=== PATIENT | male | born 1960 | race Caucasian/White ===

== ENCOUNTER 2023-03-19 11:49 | Outpatient (REF) | payer MEDICAID, SELFPAY ==
[2023-03-19 14:29] LABS: MANUAL DIFF FLAG NO
[2023-03-19 14:34] LABS: Basophils Percent Auto 0.5 % (0-2); Eosinophils Absolute Auto 0.2 X10*3/uL (0.0-0.4); Eosinophils Percent Auto 5.6 % (0-4); Hematocrit 35.3 % (42.0-52.0); Hemoglobin 11.6 g/dl (14.0-18.0); Imm Gran Abs Auto 0.01 X10*3/uL (0.00-0.03); Imm Gran Pct Auto 0.2 % (0.0-0.4); Immature Retic Fraction 8.4 % (2.3-13.4); Lymphocytes Absolute Auto 0.8 X10*3/uL (1.2-4.9); Lymphocytes Percent Auto 18.7 % (20-40); Mean Corpuscular HGB Conc 32.9 g/dl (31.0-36.0); Mean Corpuscular Hemoglobin 30.9 pg (27.0-33.0); Mean Corpuscular Volume 93.9 fL (80.0-98.0); Monocytes Absolute Auto 0.6 X10*3/uL (0.1-1.2); Monocytes Percent Auto 14.6 % (2-11); Neutrophils Absolute Auto 2.5 x10*3/uL (2.0-8.3); Neutrophils Percent Auto 60.4 % (45-73); Platelet Count 187 X10*3/uL (160-400); Red Blood Count 3.76 X10*6/uL (4.60-5.80); Red Cell Distribution Width 13.4 % (11.0-16.0); Retic HGB Equivalent 34.3 pg (30.0-35.0); Reticulocytes Absolute 0.037 X10*6/uL (0.026-0.095); White Blood Count 4.1 X10*3/uL (4.8-10.8)
[2023-03-19 15:18] LABS: Folate 14.7 ng/mL (> or = 4.0); Vitamin B12 545 pg/mL (200-900)
[2023-03-19 15:48] LABS: Iron 74 mcg/dL (45-160); Percent Iron Saturation 30 % (15-50); Total Iron Binding Capacity 243 mcg/dL (228-428); Unsaturated Iron Binding 169 ug/dL
[2023-03-19 15:52] LABS: Ferritin 202 ng/mL (20-250)
== END 2023-03-19 11:50 | disposition home or self-care (01) ==
LOC: HO.CHCLDS 11:49
PROVIDERS: Visit Provider Internal Medicine
DX: D64.9 Anemia, unspecified (principal)
CPT/HCPCS: 36415; 82607; 82728; 82746; 83540; 85025; 85045

== ENCOUNTER 2025-05-24 08:41 | Outpatient (REF) | payer MEDICAID, SELFPAY ==
[2025-05-24 14:31] LABS: MANUAL DIFF FLAG NO
[2025-05-24 14:35] LABS: Hematocrit 42.3 % (42.0-52.0); Hemoglobin 13.7 g/dl (14.0-18.0); Imm Gran Abs Auto 0.03 X10*3/uL (0.00-0.03); Imm Gran Pct Auto 0.5 % (0.0-0.4); Lymphocytes Absolute Auto 0.4 X10*3/uL (1.2-4.9); Mean Corpuscular HGB Conc 32.4 g/dl (31.0-36.0); Mean Corpuscular Hemoglobin 32.0 pg (27.0-33.0); Mean Corpuscular Volume 98.8 fL (80.0-98.0); NRBC Abs Auto 0.000 X10*3/uL (0.0-0.012); NRBC Pct Auto 0.0 /100WBC (0.0-0.2); Platelet Count 241 X10*3/uL (160-400); Red Blood Count 4.28 X10*6/uL (4.60-5.80); White Blood Count 5.8 X10*3/uL (4.8-10.8)
== END 2025-05-24 08:42 | disposition home or self-care (01) ==
LOC: HO.CHCLDS 08:41
PROVIDERS: Visit Provider Internal Medicine
DX: I25.10 Atherosclerotic heart disease of native coronary artery without angina pectoris (principal); C04.9 Malignant neoplasm of floor of mouth, unspecified
CPT/HCPCS: 36415; 80053; 80061; 84443; 85025

== ENCOUNTER 2025-06-04 09:51 | Outpatient (REF) | payer MEDICAID, SELFPAY ==
--- OUTSIDE RECORDS SUMMARY | 2025-06-04 11:09 | XMS_ITS | Encounter Summary ---
Author Organization [facility] Address [address] [facility] [address] [place] [address] Phone Care Team Providers Care Internal Audit Director Name Role Phone Nyasia Walters MD Primary Care Pr ovider Real Vera DDS, MD Unavailable Poncho Perkins MD, DDS Unavailable + [phone] Encounter Details Date Type Department Care Team (Late st Contact Info) Description 12/22/2023 Procedure Pass [facility] Main [place] [address] [place] [address] Social History Tobacco Use Types Packs/Day Years Used Date Smoking Tobacco: Every Day Cigarettes 0.5 45.8 Started: 08/16/1979 Passive Smoke Exposure: Yes Smokeless Tobacco: Never Comments:im going to stop sm oking some day Alcohol Use Standard Drinks/Week Comments Not Currently 0 (1 standard drink = 0.6 oz pur e alcohol) quit drinking 2009 Education Answer Date Recorded Are you interested in more education? Not on sury e 12/11/2022 Are you concerned about learning? Not on file 12/11/2022 No 12/11/2022 No 12/11/2022 Digital Access Answer Date Recorded No 01/09/2023 No 01/09/2023 Reliable internet access at home? Not on file 01/09/2023 Device with a working camera? Not on file Sex and Gender Information Value Date Recorded Sex Assigned at Not on file Legal Sex Male 9:47 PM EDT Gender Identity Not on file Sexual Orientation Not on file documented as of this encounter Plan of Treatment Not on file documented as of this encounter Visit Diagnoses Not on filedocumented in this encounter Care Teams Internal Audit Director Relationship Specialty Start Date End Date Nyasia Walters MD [address] [place] [id number] PCP - General Internal Medicine 09/01/22 Real Vera DDS, MD [address] [place] [address] [address] [place] [address] [email or web address] mixing 09/01/22 Poncho Perkins MD, DDS [address] [place] [address] [email or web address] mixing 09/15/22 documented as of this encounter Additional Source Comments The information contained in this document represents components of the legal health record. It is not the complete legal health record.[facility]
--- OUTSIDE RECORDS SUMMARY | 2025-06-04 11:09 | XMS_ITS | Encounter Summary ---
Author Organization [employer] Address [address] [facility] 7[address] [place] [address] Care Team Providers Care Living Nurse Name Role Phone Nyasia Walters MD Primary Care Provider [phone] Reason for Visit * Reason Onset Date Comments Call Back Request 08/12/2023 Encounter Details Date Type Department Care Team ([facility] Contact Info) Description 08/12/2023 Telephone [facility] PEDS [address] [place], [place] [id number] Nyasia Walters MD [address] [place] [address] Call Back Request Social History Tobacco Use Types Packs/Day Years Used Date Smoking Tobacco: Every Day Cigarettes 0.5 44 Passive Smoke Exposure: Never Smokeless Tobacco: Never Alcohol Use Standard Drinks/Week Comments Never 0 (1 standard drink = 0.6 oz pur e alcohol) Depression Answer Date Recorded Patient Health Questionnaire-9 Score 4 03/11/2023 Housing Stability Answer Date Recorded What is your housing situation today? I have mayra white 06/08/[address] you li ve. Do you have problems with any of the following? None of the above 06/08/2023 Food Insecurity Answer Date Recorded Within the past 12 months, y ou worried that your food would run out before you got money to buy more: Never True 06/08/2023 Within the past 12 months,th e food you bought just didn't last and you didn't have enough money to get more: Never True Transportation Answer Date Recorded In the past 12 months, has l ack of transportation kept you from medical appts, meetings, work or from getting things needed for daily living? No 06/08/2023 Utilities Answer Date Recorded In the past 12 months, has t he electric, gas, oil or water company threatened to shut off services in your home? No 06/08/2023 Depression Answer Date Recorded Patient Health Questionnaire-2 Score 1 03/11/2023 Sex and Gender Information Value Date Recorded Sex Assigned at Male 06/15/2022 10:22 AM EDT Legal Sex Male 10:22 AM EDT Gender Identity Male 06/15/2022 10:22 AM EDT Sexual Orientation Choose not to disclose 2021 10:22 AM EDT documented as of this encounter Miscellaneous Notes * Telephone Encounter - Korin Hastings RN - 08/17/2023 11:06 AM EST Returned call to pt regarding message below. Pt informed of increased dose of pantoprazole to BID and to let us know if it is not working as PCP may have to change to an alternative. Pt agrees with plan. * Telephone Encounter - Shannan Choi - 08/12/2023 4:24 PM EST Tc from pt requesting to speak with nurse In regards to pantoprazole (Protonix) 40 MG EC tablet. States medication is only working for half the day. Please contact pt at [phone] documented in this encounter Plan of Treatment Not on file documented as of this encounter Visit Diagnoses Not on filedocumented in this encounter Additional Health Concerns Assessment Noted Time PHQ-9 Depression Total Score: 4 03/11/20 23 1:12 PM EDT documented as of this encounter Care Teams Living Nurse Relationship Specialty Start Date End Date Nyasia Walters MD [address] [place] [id number] PCP - General Internal Medicine 08/16/18 documented as of this encounter
--- OUTSIDE RECORDS SUMMARY | 2025-06-04 11:09 | XMS_ITS | Encounter Summary ---
Author Organization [facility] Address [address] [facility] [address] [place] [address] Phone Care Team Providers Care Management Consultant Name Role Phone Nyasia Walters MD Primary Care Pr ovider Real Vera DDS, MD Unavailable Poncho Perkins MD, DDS Unavailable + [phone] Encounter Details Date Type Department Care Team (Late st Contact Info) Description 12/22/2023 Procedure Pass [facility] - [facility] Main [place] [address] [place] [address] Social History Tobacco Use Types Packs/Day Years [...] on filedocumented in this encounter Care Teams Management Consultant Relationship Specialty Start Date End Date Nyasia Walters MD [address] [place] [address] PCP - General Internal Medicine 09/01/22 Real Vera DDS, MD [address] [place] [address] [address] [place] [address] [email or web address] 09/01/22 Poncho Perkins MD, DDS [address] [place] [address] [email or web address] mechanic 09/15/22 documented as of this encounter Additional Source Comments The information contained in this document represents components of the legal health record. It is not the complete legal health record.[facility]
--- OUTSIDE RECORDS SUMMARY | 2025-06-04 11:09 | XMS_ITS | Encounter Summary ---
Author Organization [employer] Address [address] [facility] 7t [place] [address] Care Team Providers Care Sugarcane Planter Name Role Phone Nyasia Walters MD Primary Care Provider [phone] Reason for Visit * Reason Onset Date Comments Referral 04/19/2025 Encounter Details Date Type Department Care Team (Late st Contact Info) Description 04/19/2025 Telephone [facility] MED[facility] [address] [place] [address] Nyasia Walters MD [address] [place] [address] Referral Social History Tobacco Use Types Packs/Day Years Used Date Smoking Tobacco: Every Day Cigarettes 0.5 44 Passive Smoke Exposure: Never Smokeless Tobacco: Never Alcohol Use Standard Drinks/Week Comments Never 0 (1 standard drink = 0.6 oz pur e alcohol) Depression Answer Date Recorded Patient Health Questionnaire-9 Score 5 11/06/2024 Patient Health Questionnaire-9 Score 5 11/06/2024 Last PHQ-9: Questionnaire Data Not on file 0 11/06/2024 Housing Stability Answer Date Recorded What is your housing situation today? I have mayra sing 04/27/[address] you li ve. Do you have problems with any of the following? None of the above 04/27/2024 Food Insecurity Answer Date Recorded Within the past 12 months, y ou worried that your food would run out before you got money to buy more: Never True 04/27/2024 Within the past 12 months,th e food you bought just didn't last and you didn't have enough money to get more: Never True 07/2024 Transportation Answer Date Recorded In the past 12 months, has l ack of transportation kept you from medical appts, meetings, work or from getting things needed for daily living? No 04/27/2024 Utilities Answer Date Recorded In the past 12 months, has t he electric, gas, oil or water company threatened to shut off services in your home? No 04/27/2024 Depression Answer Date Recorded Patient Health Questionnaire-2 Score 2 11/06/2024 Internet Access Answer Date Recorded Internet Access Q1 Yes 04/27/2024 Internet Access Q2 Not on file 04/27/2024 Sex and Gender Information Value Date Recorded Sex Assigned at Male 06/15/2022 10:22 AM EDT Legal Sex Male 10:22 AM EDT Gender Identity Male 06/15/2022 10:22 AM EDT Sexual Orientation Choose not to disclose 2021 10:22 AM EDT documented as of this encounter Miscellaneous Notes * Telephone Encounter - America Hutson - 04/19/2025 9:28 AM EDT Tc from pt given the fas number for the chiropractic referral documented in this encounter Plan of Treatment Not on file documented as of this encounter Visit Diagnoses Not on filedocumented in this encounter Additional Health Concerns Assessment Noted Time PHQ-9 Depression Total Score: 5 11/07/19 25 2:49 PM EDT documented as of this encounter Care Teams Sugarcane Planter Relationship Specialty Start Date End Date Nyasia Walters MD [address] [place] [address] PCP - General Internal Medicine 08/16/18 documented as of this encounter
--- OUTSIDE RECORDS SUMMARY | 2025-06-04 11:09 | XMS_ITS | Encounter Summary ---
Author Organization [employer] Address [address] [facility] [address] [place] [address] Care Team Providers Care Novelty Candy Maker Name Role Phone Nyasia Walters MD Primary Care Provider [phone] Reason for Visit * Reason Onset Date Comments Medication Question 07/19/2023 Encounter Details Date Type Department Care Team ([facility] st Contact Info) Description 07/19/2023 Telephone [facility] [address] [place], [place] [phone] Nyasia Walters MD [address] [place] [address] Medication Question Social History Tobacco Use Types Packs/Day Years [...] Telephone Encounter - Korin Hastings RN - 07/22/2023 9:37 AM EST Placed call to pharmacy regarding message below. Pharmacy states rx for Nasonex was never received and azelastine nasal spray was not covered by insurance. Pharmacist looked into reasoning behind denial and issue was the amount of refills on rx. Refill was set for 12 refills and insurance denied it, pharmacist switched rx to 11 refills and rx went through. Pharmacist states will fill rx now for pt apple picker. Placed call to pt to inform of POC. LVM to return call PRN to nurses. * Telephone Encounter - Andrews Montes - 07/21/2023 11:46 AM EST Tc from pt regarding requesting call back regarding medication not covered by insurance. Please contact pt at [phone]. * Telephone Encounter - Korin Hastings RN - 07/20/2023 9:59 AM EST Noted. Placed call to pt and informed of alternative spray. Pt agrees with plan. * Telephone Encounter - Korin Hastings RN - 07/19/2023 3:17 PM EST Placed call to [facility] regarding message below. Azelastine is ready for apple picker but Flonase is too soonand cannot be refilled until 07/31/23. Placed call to pt to inform but pt stated Flonase does not help pt and Azelastine is not covered by insurance and costs 50 dollars OOP. Pt is requesting an alternative to this med that is not Flonase as this med does not help. Pt informed message would be sent to PCP and would be informed of POC. * Telephone Encounter - Shannan Choi - 07/19/2023 8:41 AM EST Tc from pt requesting an alternative for fluticasone (Flonase Allergy Relief) 50 MCG/ACT nasal spray. Was advised by pharmacy medication is not covered by insurance. documented in this encounter Plan of Treatment Not on file documented as of this encounter Visit Diagnoses Not on filedocumented in this encounter Additional Health Concerns Assessment Noted Time PHQ-9 Depression Total Score: 4 03/11/20 23 1:12 PM EDT documented as of this encounter Care Teams Novelty Candy Maker Relationship Specialty Start Date End Date Nyasia Walters MD [address] [place] [address] PCP - General Internal Medicine 08/16/18 documented as of this encounter
--- OUTSIDE RECORDS SUMMARY | 2025-06-04 11:09 | XMS_ITS | Encounter Summary ---
Author Organization [employer] Address [address] [facility] [address] [place] [address] Care Team Providers Care Tripper Name Role Phone Nyasia Walters MD Primary Care Provider [phone] Encounter Details Date Type Department Care Team (Late st Contact Info) Description 12/13/2023 Telephone [facility] MED[facility] [address] [place] [address] Nyasia Walters MD [address] [place] [address] Social History Tobacco Use Types Packs/Day Years Used Date Smoking Tobacco: Every Day Cigarettes 0.5 44 Passive Smoke Exposure: Never Smokeless Tobacco: Never Alcohol Use Standard Drinks/Week Comments Never 0 (1 standard drink = 0.6 oz pur e alcohol) Depression Answer Date Recorded Patient Health Questionnaire-9 Score 4 03/11/2023 Housing Stability Answer Date Recorded What is your housing situation today? I have mayracharlotte white 06/08/[address] you [...] AM EDT documented as of this encounter Plan of Treatment Not on file documented as of this encounter Visit Diagnoses Not on filedocumented in this encounter Additional Health Concerns Assessment Noted Time PHQ-9 Depression Total Score: 4 03/11/20 23 1:12 PM EDT documented as of this encounter Care Teams Tripper Relationship Specialty Start Date End Date Nyasia Walters MD [address] [place] [address] PCP - General Internal Medicine 08/16/18 documented as of this encounter
--- OUTSIDE RECORDS SUMMARY | 2025-06-04 11:09 | XMS_ITS | Clinical Summary ---
Author Organization [employer] Address [address] [facility] 7t [place] [address] Care Team Providers Care Oil Plant Operator Name Role Phone Nyasia Walters MD Primary Care Provider [phone] Allergies No known active allergies Medications amoxicillin (Amoxil) 400 MG/5ML suspension TAKE 5 ML (400 MG TOTAL) BY MOUTH 2 (TWO) TIMES A DAY. 11/15/19 23 Active chlorhexidine (Peridex) 0.12 % solution Place 0.018 g into mouth between cheek and gum. 06/15/20 22 Active fentaNYL (Duragesic) 12 MCG/HR Apply topically. 06/23/20 22 Active pentoxifylline (Trental) 400 MG ER tablet TAKE 1 TABLET BY MOUTH 3 TIMES A DAY WITH MEALS. 11/05/19 23 Active pantoprazole (ProtoNix) 40 MG EC tabletIndications :Elizabeth's esophagus without dysplasia TAKE 1 TABLET (40 MG) BY MOUTH 2 TIMES DAILY. DO NOT CRUSH, CHEW, OR SPLIT. 180 tablet 3 06/26/20 24 025 Active albuterol (Ventolin HFA) 108 (90 Base) MCG/ACT inhaler INHALE 2 PUFFS EVERY 6 HOURS IF NEEDED FOR WHEEZING. 18 g 11 09/22/19 25 Active heparin flush 100 units/mL solution 100 Units by Intracatheter route Once per day. Active OXYCODONE HCL PO Take 20 mg by mouth. Active lidocaine (Xylocaine) 2 % solution Take 5 mL by mouth if needed for mild pain or moderate pain. SWISH 5 ML AND SPIT OR SWALLOW 4 TIMES A DAY NEEDED BEFORE EATING FOR MOUTH SORE PAIN 10/27/19 25 Active thiamine (Vitamin B-1) 100 MG tablet Take 1 tablet by mouth Once per day. 08/21/19 Active levothyroxine (Tirosint) 50 MCG capsule Take 50 mcg by mouth before breakfast. Active atorvastatin (Lipitor) 80 MG tabletIndications :Coronary artery disease involving [place] coronary artery of [place] heart without angina pectoris TAKE 1 TABLET BY MOUTH EVERY DAY IN THE MORNING 90 tablet 1 02/10/20 Active Elastic Bandages & Supports (Medical Compression Stockings) miscIndications:V enous insufficiency 15/20 mm Hg, Knee high compression stockings. 2 each 1 04/18/20 Active Hospital, Clinic, or Other Facility Administered Medication Ordered Dose Route Frequency Start Date End Date Status triamcinolone acetonide (Kenalog-40) injection 80 mgIndications:Chronic right shoulder pain 80 mg IX Once 05/17/2025 05/17/2025 Ended lidocaine (Xylocaine) 1 % injection 20 mgIndications:Chronic right shoulder pain 20 mg IJ Once 05/17/2025 05/17/2025 Ended Active Problems Problem Noted Date Diagnosed Date Adult wellness visit 11/06/2024 Chronic back pain 11/26/2022 Tobacco use disorder 09/11/2022 Posterior left knee pain 09/03/2022 Assessment & Plan (09/03/2022 6:04 PM EST): No swelling appreciated on examination and also good ROM. At this moment he reports he feels 75% better. Will send knee X ray and return to care if symptoms recur. Cellulitis and abscess of mouth 09/03/2022 Assessment & Plan (09/03/2022 6:06 PM EST): Patient with erythema surrounding area of induration and drainage, at this moment will cover with amox-clav and strongly recommended patient to call his surgeon, he has had this infection before and per him has been on prolonged antibiotics for this. RTC if no improvement or worsening symptoms. 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); Coronary artery disease involving [place] coronary artery of [place] heart without angina pectoris 05/17/2025 9:45 AM EDT Procedure Visit [facility] [address] [place] [address] Stacey Mac MD Chronic right shoulder pain (Primary Dx) 05/17/2025 Travel 05/10/2025 Travel 05/10/[address] [address] Nyasia Walters MD Nurse Triage 05/08/2025 Telephone [facility] [address] [place] [address] Nyasia Walters MD Nurse Triage 04/19/[address] [address] Nyasia Walters MD Referral 04/18/2025 10:00 AM EDT Office Visit [facility] [address] [place] [address] Nyasia Walters MD Chronic midline low back pain without sciatica (Primary Dx); Cervical radiculopathy; Venous insufficiency 04/18/2025 Travel 04/17/2025 Telephone [facility] [address] [place] [address] Nyasia Walters MD Chart Prep 04/17/2025 Telephone [facility] [address] [place] [address] Nyasia Kimble MD Referral 04/02/2025 Telephone [facility] [address] [place] [address] Nyasia Walters MD Nurse Triage 03/29/2025 Telephone [facility] [address] [place] [address] Nyasia Walters MD Referral from Last 3 Months Immunizations Immunization Administration Dates Next Due Influenza Whole 05/31/2007 Influenza, IIV3, injectable 05/31/2009 Pneumococcal Polysaccharide PPSV23 05/31/2007 Td (adult), unspecified 08/16/2004 Tdap 11/19/2015 Social History Tobacco Use Types Packs/Day Years Used Date Smoking Tobacco: Every Day Cigarettes 0.5 44 Passive Smoke Exposure: Never Smokeless Tobacco: Never Tobacco Cessation:Ready to Q uit: Not Asked; Counseling Given: Not Answered Alcohol Use Standard Drinks/Week Comments Never 0 (1 standard drink = 0.6 oz pur e alcohol) Depression Answer Date Recorded Patient Health Questionnaire-9 Score 5 11/06/2024 Patient Health Questionnaire-9 Score 5 11/06/2024 Last PHQ-9: Questionnaire Data Not on file 0 11/06/2024 Housing Stability Answer Date Recorded What is your housing situation today? I have mayra white 04/27/[address] you li [...] not to disclose 2021 10:22 AM EDT Last Filed Vital Signs Vital Sign Reading Time Taken Comments Blood Pressure 98/58 05/17/2025 9:51 AM EDT Pulse 80 05/17/2025 9:51 AM EDT Temperature 36.2 C (97.1 F) 05/17/2025 9:51 AM EDT Respiratory Rate 20 05/17/2025 9:51 AM EDT Oxygen Saturation 94% 04/18/2025 10:20 AM EDT Inhaled Oxygen Concentration - - Weight 64 kg (141 lb) 05/17/2025 9:51 AM EDT Height 178.4 cm (5' 10.25 ) 05/17/2025 9:51 AM E DT Body Mass Index 20.09 05/17/2025 9:51 AM EDT Plan of Treatment Health Maintenance Due Date Last Done Comments CT Colonography 1960 Colonoscopy 1960 Colorectal Cancer Screening 1960 FIT DNA/Cologuard 1960 FIT 1960 FOBT 1960 HIV Screening 1960 Lipid Panel 1960 Sigmoidoscopy 1960 Hepatitis C Screening 1978 Pneumococcal Vaccine: 50+ Years (2 of 2 - PCV) 05/31/2008 05/31/2007 Lung Cancer Screening 2010 Zoster Vaccines (1 of 2) 2010 RSV Patients and Patients Aged 60 years or older (1 - Risk 60-74 years 1-dose series) 2020 COVID-19 Vaccine (1 - 2023-2 5 season) 2025 Influenza Vaccine (#1) 2025 9, 05/31/2007 Alcohol/Substance Use Screening 11/06/2025 11/06/2024 Depression Screening 11/06/2025 11/06/2024, 11/06/2024 SDOH Screening 11/06/2025 11/06/2024 DTaP/Tdap/Td Vaccines (2 - T d or Tdap) 11/18/2025 11/19/2015, 08/16/2004 Disability Screening 05/10/2026 05/10/2025 Tobacco Screening 05/17/2026 05/17/2025 HIB Vaccines Aged Out No longer eligi ble based on patient's age to complete this topic HPV Vaccines Aged Out No longer eligi ble based on patient's age to complete this topic Hepatitis A Vaccines Aged Out No long er eligible based on patient's age to complete this topic Hepatitis B Vaccines Aged Out No long er eligible based on patient's age to complete this topic IPV Vaccines Aged Out No longer eligi ble based on patient's age to complete this topic Meningococcal B Vaccine Aged Out No l onger eligible based on patient's age to complete this topic Meningococcal Vaccine Aged Out No gustavo tere eligible based on patient's age to complete this topic RSV under 20 months Aged Out No longe r eligible based on patient's age to complete this topic Rotavirus Vaccines Aged Out No longer eligible based on patient's age to complete this topic Procedures Procedure Name Priority Date/Time Associated Diagnosis Comments CBC WITH AUTO DIFFERENTIAL Routine 05/24/2025 8:43 AM EDT 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) Coronary artery disease involving [place] coronary artery of [place] heart without angina pectoris MT ARTHROCENTESIS ASPIR&/INJ MAJOR JT/BURSA W/O US Routine 05/17/2025 10:06 AM EDT Chronic right shoulder pain from Last 3 Months Results * (ABNORMAL) CBC auto differential (05/24/2025 8:43 AM EDT) White Blood Count 5.8 4.8 - 10.8 X10*3/uL [facility] Red Blood Count 4.28(L) 4.60 - 5.80 X10*6/uL [facility] Hemoglobin 13.7(L) 14.0 - 18.0 g/dl [facility] Hematocrit 42.3 42.0 - 52.0 % [facility] Mean Corpuscular Volume 98.8(H) 80.0 - 98.0 fL [facility] Mean Corpuscular Hemoglobin 32.0 27.0 - 33.0 pg [facility] Mean Corpuscular HGB Conc 32.4 31.0 - 36.0 g/dl [facility] Red Cell Distribution Width 15.8 11.0 - 16.0 % [facility] Platelet Count 241 160 - 400 X10*3/uL [facility] Mean Platelet Volume 10.3 9.4 - 12.4 fL [facility] Neutrophils Percent Auto 79.6(H) 45 - 73 % [facility] Imm Gran Pct Auto 0.5(H) 0.0 - 0.4 % [facility] Lymphocytes Percent Auto 7.4(L) 20 - 40 % [facility] Monocytes Percent Auto 10.8 2 - 11 % [facility] Eosinophils Percent Auto 1.4 0 - 4 % [facility] Basophils Percent Auto 0.3 0 - 2 % [facility] NRBC Pct Auto 0.0 0.0 - 0.2 /100WBC [facility] Neutrophils Absolute Auto 4.6 2.0 - 8.3 x10*3/uL [facility] Imm Gran Abs Auto 0.03 0.00 - 0.03 X10*3/uL [facility] Lymphocytes Absolute Auto 0.4(L) 1.2 - 4.9 X10*3/uL [facility] Monocytes Absolute Auto 0.6 0.1 - 1.2 X10*3/uL [facility] Eosinophils Absolute Auto 0.1 0.0 - 0.4 X10*3/uL [facility] Basophils Absolute Auto 0.0 0.0 - 0.2 X10*3/uL [facility] NRBC Abs Auto 0.000 0.0 - 0.012 X10*3/uL [facility] Blood Venous blood specimen / Unknown 05/24/2025 8:43 AM EDT 05/24/2025 2:26 PM EDT us Nyasia Walters MD LAB BLOOD ORDERABLES Final Result [facility] [address] [place] [address] [phone] * MT ARTHROCENTESIS ASPIR&/INJ MAJOR JT/BURSA W/O US (05/17/2025 10:06 AM EDT) Narrative Stacey Mac MD - 05/17/2025 10:06 AM EDT Stacey Mac MD 05/17/2025 10:11 AM Arthrocentesis Date/Time: 05/17/2025 10:06 AM Performed by: Stacey Mac MD Authorized by: Stacey Mac MD Consent: Consent obtained: Verbal and written Consent given by: Patient Risks, benefits, and alternatives were discussed: yes Risks discussed: Pain Alternatives discussed: Referral [place] protocol: Procedure explained and questions answered to patient or proxy's satisfaction: yes Relevant documents present and verified: yes Test results available: yes Imaging studies available: yes Required blood products, implants, devices, and special equipment available: yes Site/side marked: yes Immediately prior to procedure, a time out was called: yes Patient identity confirmed: Verbally with patient Location: Location: Shoulder Shoulder: R glenohumeral Anesthesia: Anesthesia method: Topical application Procedure details: Preparation: Patient was prepped and draped in usual sterile fashion Needle gauge: 22 G Ultrasound guidance: no Approach: Posterior Steroid injected: yes Specimen collected: no Post-procedure details: Dressing: Adhesive bandage Procedure completion: Tolerated Stacey Mac MD IN CLINIC/BEDSIDE ORDERABLES Fin al Result from Last 3 Months Insurance [facility] C3 Care Teams Oil Plant Operator Relationship Specialty Start Date End Date Nyasia Walters MD [address] [place] [phone] PCP - General Internal Medicine 08/16/18
--- OUTSIDE RECORDS SUMMARY | 2025-06-04 11:09 | XMS_ITS | Encounter Summary ---
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) Coronary artery disease involving [place] coronary artery of [place] heart without angina pectoris Expected: 05/23/2025 (Approximate), Expires: 05/23/2026 TSH with Reflex to Free T4 Lab Routine 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) Coronary artery disease involving [place] coronary artery of [place] heart without angina pectoris Expected: 05/23/2025 (Approximate), Expires: 05/23/2026 documented as of this encounter Procedures Procedure Name Priority Date/Time Associated Diagnosis Comments CBC WITH AUTO DIFFERENTIAL Routine 05/24/2025 8:43 AM EDT 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) Coronary artery disease involving [place] coronary artery of [place] heart without angina pectoris documented in this encounter Results * (ABNORMAL) CBC auto differential (05/24/2025 8:43 AM EDT) White Blood Count 5.8 4.8 - 10.8 X10*3/uL [facility] Red Blood Count 4.28(L) 4.60 - 5.80 X10*6/uL [facility] Hemoglobin 13.7(L) 14.0 - 18.0 g/dl [facility] Hematocrit 42.3 42.0 - 52.0 % [facility] Mean Corpuscular Volume 98.8(H) 80.0 - 98.0 fL [facility] Mean Corpuscular Hemoglobin 32.0 27.0 - 33.0 pg [facility] Mean Corpuscular HGB Conc 32.4 31.0 - 36.0 g/dl [facility] Red Cell Distribution Width 15.8 11.0 - 16.0 % [facility] Platelet Count 241 160 - 400 X10*3/uL [facility] Mean Platelet Volume 10.3 9.4 - 12.4 fL [facility] Neutrophils Percent Auto 79.6(H) 45 - 73 % [facility] Imm Gran Pct Auto 0.5(H) 0.0 - 0.4 % [facility] Lymphocytes Percent Auto 7.4(L) 20 - 40 % [facility] Monocytes Percent Auto 10.8 2 - 11 % [facility] Eosinophils Percent Auto 1.4 0 - 4 % [facility] Basophils Percent Auto 0.3 0 - 2 % [facility] NRBC Pct Auto 0.0 0.0 - 0.2 /100WBC [facility] Neutrophils Absolute Auto 4.6 2.0 - 8.3 x10*3/uL [facility] Imm Gran Abs Auto 0.03 0.00 - 0.03 X10*3/uL [facility] Lymphocytes Absolute Auto 0.4(L) 1.2 - 4.9 X10*3/uL [facility] Monocytes Absolute Auto 0.6 0.1 - 1.2 X10*3/uL [facility] Eosinophils Absolute Auto 0.1 0.0 - 0.4 X10*3/uL [facility] Basophils Absolute Auto 0.0 0.0 - 0.2 X10*3/uL [facility] NRBC Abs Auto 0.000 0.0 - 0.012 X10*3/uL [facility] Blood Venous blood specimen / Unknown 05/24/2025 8:43 AM EDT 05/24/2025 2:26 PM EDT Nyasia Walters MD LAB BLOOD ORDERABLES Final Result [facility] [address] [place] [address] [phone] documented in this encounter Visit Diagnoses Diagnosis 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
--- OUTSIDE RECORDS SUMMARY | 2025-06-04 11:09 | XMS_ITS | Encounter Summary ---
Author Organization [employer] Address [address] [facility] 7t [place] [address] Care Team Providers Care Value Analyst Name Role Phone Nyasia Walters MD Primary Care Provider [phone] Encounter Details Date Type Department Care Team ([facility] st Contact Info) Description 12/13/2023 Orders Only [facility] [address] [place], [place] [phone] Nyasia Walters MD [address] [place] [address] Social History Tobacco Use Types Packs/Day Years [...] documented as of this encounter Care Teams Value Analyst Relationship Specialty Start Date End Date Nyasia Walters MD [address] [place] [address] PCP - General Internal Medicine 08/16/18 documented as of this encounter
--- OUTSIDE RECORDS SUMMARY | 2025-06-04 11:10 | XMS_ITS | Encounter Summary ---
Author Organization [facility] Address [address] [facility] [address] [place] [phone] Phone Care Team Providers Care Manager Support Name Role Phone Nyasia Walters MD Primary Care Pr ovider Real Vera DDS, MD Unavailable [phone] Poncho Perkins MD, DDS Unavailable [phone] Encounter Details Date Type Department Care Team (Late st Contact Info) Description 01/18/2024 Procedure Pass [facility] [address] [place] [address] Social History Tobacco Use Types Packs/Day Years Used Date Smoking Tobacco: Every Day Cigarettes 0.5 45.8 Started: 08/16/1979 Passive Smoke Exposure: Yes Smokeless Tobacco: Never Alcohol Use Standard Drinks/Week Comments Not Currently [...] with a working camera? Not on file Intimate Partner Violence Answer Date R ecorded Are you denied basic needs s uch as food, clothing, or medical care? No 12/31/2023 In the past 12 months have y ou been in a relationship with a person who hurts, threatens, or tries to control you? No 12/31/2023 Are you denied basic needs s uch as food, clothing, or medical care? No 12/31/2023 In the past 12 months have y ou been in a relationship with a person who hurts, threatens, or tries to control you? No 12/31/2023 Sex and Gender Information Value Date Recorded Sex Assigned at Not on file Legal Sex Male 9:47 PM EDT Gender Identity Not on file Sexual Orientation Not on file documented as of this encounter Plan of Treatment Not on file documented as of this encounter Visit Diagnoses Not on filedocumented in this encounter Care Teams Manager Support Relationship Specialty Start Date End Date Nyasia Walters MD [address] [place] [phone] PCP - General Internal Medicine 09/01/22 Real Vera DDS, MD [address] [place] [address] [address] [place] [address] [email or web address] deckhand shrimp boat 09/01/22 Poncho Perkins MD, DDS [address] [place] [phone] deckhand shrimp boat 09/15/22 documented as of this encounter Additional Source Comments The information contained in this document represents components of the legal health record. It is not the complete legal health record.[facility]
--- OUTSIDE RECORDS SUMMARY | 2025-06-04 11:10 | XMS_ITS | Encounter Summary ---
Author Organization [employer] Address [address] [facility] 7t [place] [address] Care Team Providers Care Draw Frame Tender Name Role Phone Nyasia Walters MD Primary Care Provider [phone] Encounter Details Date Type Department Care Team ([facility] st Contact Info) Description 08/13/2023 Orders Only [facility] PEDS [address] [place], [place] [phone] Nyasia Walters MD [address] [place], [place] [phone] Elizabeth's esophagus without dysplasia (Primary Dx) Social History Tobacco Use Types Packs/Day Years [...] documented as of this encounter Visit Diagnoses Diagnosis Elizabeth's esophagus without dysplasia- Primary documented in this encounter Additional Health Concerns Assessment Noted Time PHQ-9 Depression Total Score: 4 03/11/20 23 1:12 PM EDT documented as of this encounter Care Teams Draw Frame Tender Relationship Specialty Start Date End Date Nyasia Walters MD [address] [place] [phone] PCP - General Internal Medicine 08/16/18 documented as of this encounter
--- OUTSIDE RECORDS SUMMARY | 2025-06-04 11:10 | XMS_ITS | Encounter Summary ---
Author Organization [employer] Address [address] [facility] 7t [place] [address] Care Team Providers Care Recreational Leader Name Role Phone Nyasia Walters MD Primary Care Provider [phone] Encounter Details Date Type Department Care Team (Late st Contact Info) Description 01/10/2025 Orders Only [facility] [address] [place] [address] ProviderMara MD Social History Tobacco Use Types Packs/Day Years [...] on file documented as of this encounter Procedures Procedure Name Priority Date/Time Associated Diagnosis Comments EGD Routine 01/09/2025 11:11 AM EDT documented in this encounter Results * EGD (01/09/2025 11:11 AM EDT) Anatomical Region Laterality Modality Endoscopy Historical Provider ENDOSCOPY PROCEDURE ORDER DAYNE Final Result documented in this encounter Visit Diagnoses Not on filedocumented in this encounter Additional Health Concerns Assessment Noted Time PHQ-9 Depression Total Score: 5 11/07/19 25 2:49 PM EDT documented as of this encounter Care Teams Recreational Leader Relationship Specialty Start Date End Date Nyasia Walters MD [address] [place] [address] PCP - General Internal Medicine 08/16/18 documented as of this encounter
--- OUTSIDE RECORDS SUMMARY | 2025-06-04 11:10 | XMS_ITS | Encounter Summary ---
Author Organization [employer] Address [address] [facility] 7[address] [place] [address] Care Team Providers Care Planner/Scheduler Name Role Phone Nyasia Walters MD Primary Care Provider [phone] Reason for Visit * Reason Comments Med Refill Encounter Details Date Type Department Care Team ([facility] st Contact Info) Description 10/08/2024 Refill [facility] MED & PEDS [address] [place], [place] [phone] Nyasia Walters MD [address] [place] [address] Nasal congestion Social History Tobacco Use Types Packs/Day Years [...] Recorded Patient Health Questionnaire-2 Score 1 03/11/2023 Internet Access Answer Date Recorded Internet Access [...] as of this encounter Visit Diagnoses Diagnosis Nasal congestion Other diseases of nasal cavity and sinuses documented in this encounter Additional Health Concerns Assessment Noted Time PHQ-9 Depression Total Score: 4 03/11/20 23 1:12 PM EDT documented as of this encounter Care Teams Planner/Scheduler Relationship Specialty Start Date End Date Nyasia Walters MD [address] [place] [phone] PCP - General Internal Medicine 08/16/18 documented as of this encounter
--- OUTSIDE RECORDS SUMMARY | 2025-06-04 11:10 | XMS_ITS | Encounter Summary ---
Author Organization [facility] Address [address] [facility] [address] [place] [address] Phone Care Team Providers Care Speech Coach Name Role Phone Nyasia Walters MD Primary Care Pr ovider Real Vera DDS, MD Unavailable Poncho Perkins MD, DDS Unavailable [phone] Encounter Details Date Type Department Care Team (Late st Contact Info) Description 03/16/2025 Procedure Pass [facility] PERIOP DEPT [address] [place] [address] Social History Tobacco Use Types Packs/Day Years [...] as food, clothing, or medical care? No 03/16/2025 In the past 12 months have y ou been in a relationship with a person who hurts, threatens, or tries to control you? No 03/16/2025 Are you denied basic needs s uch as food, clothing, or medical care? No 03/16/2025 In the past 12 months have y ou been in a relationship with a person who hurts, threatens, or tries to control you? No 03/16/2025 Sex and Gender Information Value Date Recorded Sex Assigned at Not on file Legal Sex Male 9:47 PM EDT Gender Identity Not on file Sexual Orientation Not on file documented as of this encounter Plan of Treatment Not on file documented as of this encounter Visit Diagnoses Not on filedocumented in this encounter Care Teams Speech Coach Relationship Specialty Start Date End Date Nyasia Walters MD [address] [place] [id number] PCP - General Internal Medicine 09/01/22 Real Vera DDS, MD [address] [place] [address] [email or web address] aluminum boat assembly supervisor 09/01/22 Poncho Perkins MD, DDS [address] [place] [phone] aluminum boat assembly supervisor 09/15/22 documented as of this encounter Additional Source Comments The information contained in this document represents components of the legal health record. It is not the complete legal health record.[facility]
--- OUTSIDE RECORDS SUMMARY | 2025-06-04 11:10 | XMS_ITS | Encounter Summary ---
Author Organization [employer] Address [address] [facility] 7t [place] [address] Care Team Providers Care Sporting Goods Sales Associate Name Role Phone Nyasia Walters MD Primary Care Provider [phone] Reason for Visit * Reason Onset Date Comments Appointment Request 01/14/2024 Referral 01/14/2024 Encounter Details Date Type Department Care Team (Late st Contact Info) Description 01/14/2024 Telephone [facility] MEDICINE [address] [place] [address] Nyasia Walters MD [address] [place] [address] [phone] Appointment Request; Referral Social History Tobacco Use Types Packs/Day [...] encounter Miscellaneous Notes * Telephone Encounter - Wing Rayo RN - 01/17/2024 1:57 PM EDT Just as heads up to PCP. Tc to pt reagarding message below. 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 Pt states he wouldlike to talk with PCP specifically. Gave pt appt with PCP for 01/26 at 9:30 am. Pt verbalized understanding and agreement with plan. * Telephone Encounter - Lenard Mason - 01/14/2024 4:14 PM EDT Tc from patient request a urgent appt with provider states has cancer once again and would like a referral for a oncologist documented in this encounter Plan of Treatment Not on file documented as of this encounter Visit Diagnoses Not on filedocumented in this encounter Additional Health Concerns Assessment Noted Time PHQ-9 Depression Total Score: 4 03/11/20 23 1:12 PM EDT documented as of this encounter Care Teams Sporting Goods Sales Associate Relationship Specialty Start Date End Date Nyasia Walters MD [address] [place] [address] PCP - General Internal Medicine 08/16/18 documented as of this encounter
--- OUTSIDE RECORDS SUMMARY | 2025-06-04 11:10 | XMS_ITS | Encounter Summary ---
Author Organization [facility] Address [address] [facility] [address] [place] [address] Phone Care Team Providers Care Managing Attorney Name Role Phone Nyasia Walters MD Primary Care Pr ovider Real Vera DDS, MD Unavailable Poncho Perkins MD, DDS Unavailable [phone] Encounter Details Date Type Department Care Team (Late st Contact Info) Description 12/31/2023 Procedure Pass [facility] PERIOP DEPT [address] [place] [address] Social History Tobacco Use Types Packs/Day Years [...] on filedocumented in this encounter Care Teams Managing Attorney Relationship Specialty Start Date End Date Nyasia Walters MD [address] [place] [address] PCP - General Internal Medicine 09/01/22 Real Vera DDS, MD [address] [place] [address] [address] [place] [address] [email or web address] railroad surveyor 09/01/22 Poncho Perkins MD, DDS [address] [place] [address] railroad surveyor 09/15/22 documented as of this encounter Additional Source Comments The information contained in this document represents components of the legal health record. It is not the complete legal health record.[facility]
--- OUTSIDE RECORDS SUMMARY | 2025-06-04 11:10 | XMS_ITS | Clinical Summary ---
Author Organization [facility] Address [address] [facility] [address] [place] [address] Phone Care Team Providers Care Tent Assembler Name Role Phone Nyasia Walters MD Primary Care Pr ovider Real Vera DDS, MD Unavailable Poncho Perkins MD, DDS Unavailable [phone] Allergies No known active allergies Medications atorvastatin (LIPITOR) 80 MG tablet Take 80 mg by mouth daily. 3 Active chlorhexidine (PERIDEX) 0.12 % solution Swish and spit 0.018 g nightly at bedtime. 2 Active fluticasone propionate (FLONASE) 50 mcg/actuation nasal spray spray 1 - 2 spray by intranasal route every day in each nostril as needed Strength: 50 MCG/ACT 3 Active VENTOLIN HFA 90 mcg/actuation inhaler INHALE 2 PUFFS EVERY 4-6 HRS NEEDED 3 Active aspirin 81 MG EC tablet Take 1 tablet (81 mg total) by mouth daily. 3 Active Additional Information Patient not taking.Reported on 03/16/2025 amoxicillin (AMOXIL) 400 mg/5 mL suspension Take 5 mL (400 mg total) by mouth 2 (two) times a day. 300 mL 10 5 08/21/19 26 Active fentaNYL (DURAGESIC) 75 mcg/hr Place 1 patch onto the skin daily as needed. 4 Active oxyCODONE HCl 20 mg Tab Take 20 mg by mouth every 3 (three) hours as needed. 5 Active famotidine (PEPCID) 20 MG tablet Take 40 mg by mouth 2 (two) times a day. 5 Active ipratropium (ATROVENT) 21 mcg (0.03 %) nasal spray 1 spray by Nasal route 3 (three) times a day. 5 Active levothyroxine (TIROSINT) 50 mcg Cap Take 50 mcg by mouth every morning. 4 Active LIDOCAINE 2 % solution Swish and spit 15 mL every 4 (four) hours as needed. Active ondansetron (ZOFRAN) 8 MG tablet Take 8 mg by mouth every 8 (eight) hours as needed. 4 Active prochlorperazin e (COMPAZINE) 10 MG tablet Take 10 mg by mouth every 8 (eight) hours as needed. 4 Active thiamine (VITAMIN B-1) 100 MG tablet Take 100 mg by mouth daily. Active vitamin E 400 unit Cap Take 400 Units by mouth daily. Active azelastine (ASTELIN) 137 mcg (0.1 %) nasal spray 1 spray by Nasal route 2 (two) times a day. Active fentaNYL (DURAGESIC) 50 mcg/hr Place 1 patch onto the skin every third day. Active oxyCODONE HCl 10 mg Tab Take 10 mg by mouth every 4 (four) hours as needed. Active Active Problems Problem Noted Date Diagnosed Date Chronic pain 03/16/2025 Hyperlipidemia 03/16/2025 Chronic obstructive pulmonary disease (COPD) 08/2024 MS (myocardial infarction) 03/16/2025 History of heart artery stent 03/16/2025 GERD (gastroesophageal reflux disease) Resolved Problems Problem Noted Date Diagnosed Date Resolved Date Hypertension 03/16/2025 03/16/2025 Encounters Date Type Department Care Team Description 03/16/2025 3:01 PM EDT Anesthesia Event [facility] PERIOP DEPT [address] [place] [address] Mark Leong MD Choumanova, Ivanka V, MD 03/16/2025 2:15 PM EDT - 03/16/2025 3:30 PM EDT [facility] [address] [place] [address] Mukesh Mae MD LARYNGOSCOPY DIRECT WITH BIOPSY 03/16/2025 2:10 PM EDT - 03/16/2025 5:10 PM EDT Hospital Encounter [facility] [address] [place] [address] Mukesh Mae MD Discharge Disposition: Home or Self Care 03/16/2025 Procedure Pass [facility] [address] [place] [address] 03/13/2025 2:00 PM EDT Pre-Ad[place] Testing [facility] [address] [place] [address] Kin Pal MD Feng, Allen Lee, MD 03/12/2025 1:45 PM EDT Office Visit [facility] [address] [place] [address] Mukesh Mae MD Oropharyngeal cancer (Primary Dx); Dysphagia, unspecified type from Last 3 Months Social History Tobacco Use Types Packs/Day Years Used Date Smoking Tobacco: Every Day Cigarettes 0.5 45.8 Started: 08/16/1979 Passive Smoke Exposure: Yes Smokeless Tobacco: Never Tobacco Cessation:Ready to Q uit: Not Asked; Counseling Given: Not Answered Alcohol Use Standard Drinks/Week Comments Not Currently [...] on file Sexual Orientation Not on file Last Filed Vital Signs Vital Sign Reading Time Taken Comments Blood Pressure 122/75 03/16/2025 4:40 PM EDT Pulse 62 03/16/2025 4:46 PM EDT Temperature 36.1 C (97 F) 03/16/2025 4:40 PM EDT Respiratory Rate 16 03/16/2025 4:40 PM EDT Oxygen Saturation 100% 03/16/2025 4:46 PM EDT Inhaled Oxygen Concentration 100% 12/11/2022 3 :45 PM EDT Weight 61.2 kg (135 lb) 03/16/2025 2:18 PM EDT Height 180.3 cm (5' 11 ) 03/16/2025 2:18 PM EDT Body Mass Index 18.83 03/16/2025 2:18 PM EDT Plan of Treatment Health Maintenance Due Date Last Done Comments LIPID PANEL 1960 TSH LEVEL 1960 DEPRESSION SCREENING 1972 HEPATITIS C SCREENING 1978 HIV ONE-TIME SCREENING (18-6 5 YEARS) 1978 ZOSTER VACCINES (1 of 2) 12/28/1979 COLOGUARD 2005 COLONOSCOPY 2005 COLORECTAL CANCER SCREENING 2005 FIT TEST 2005 FOBT 2005 SIGMOIDOSCOPY 2005 VIRTUAL COLONOSCOPY 2005 PNEUMOCOCCAL VACCINES (50+ years) (2 of 2 - PCV) 05/31/2008 05/31/2007 RSV VACCINE (1 - Risk 50-74 years 1-dose series) 2010 LUNG CANCER SCREENING (LDCT Only) 12/23/2024 12/24/2023, 10/20/2022 INFLUENZA VACCINE (#1) 2025 , 05/31/2007 COVID-19 VACCINE (1 - 2024-2 6 season) 2025 Adult Td,Tdap Booster 11/18/2025 11/19/2015 , 08/16/2004 SMOKING Hx and SMOKELESS TOBACCO SCREENING 03/16/2026 03/16/2025 HEPATITIS A VACCINES Aged Out No long er eligible based on patient's age to complete this topic HIB VACCINES Aged Out No longer eligi ble based on patient's age to complete this topic MENINGOCOCCAL VACCINES (ACWY) Aged Out No longer eligible based on patient's age to complete this topic MENINGOCOCCAL VACCINES (B) Aged Out N o longer eligible based on patient's age to complete this topic Medical Devices Implanted Type Area Dredge Runner Device Identifier Shelf Expiration Date Model / Serial / Lot Stent X1 Explanted Type Area Dredge Runner Device Identifier Shelf Expiration Date Model / Serial / Lot Oral Hardware Description:Patient reports explanted Procedures Procedure Name Priority Date/Time Associated Diagnosis Comments ANATOMIC PATHOLOGY Routine 03/16/2025 3:23 PM EDT AIRWAY PLACEMENT Routine 03/16/2025 3:09 PM EDT PA LARYNGOSCOPY,DIRC T,OP,BIOPSY 03/16/2025 3:01 PM EDT Oropharyngeal cancer Dysphagia, unspecified type CT CHEST WITH CONTRAST Urgent/patient waiting 12/24/2023 11:12 AM EDT Cancer of oral cavity from Last 3 Months or Most Recently Relevant to Health Maintenance Results * Anatomic Pathology (03/16/2025 3:23 PM EDT) Report [address], [place] [address] Surgical Pathology Report Patient Name: CODY DELGADO : 1960 (Age: 64) Sex: M Location: [facility] Institution: [facility] Date of Operation: 03/16/2025 Date of Reported: 03/27/2025 10:42 Results To: Mukesh Mae MD FINAL PATHOLOGIC DIAGNOSIS: A. LEFT BASE OF TONGUE, BIOPSY: Squamous mucosa with focal mild atypia, and stromal fibrosis. See note. H&E levels examined. Note: Ancillary stains show a low, basal layer reactivity with Ki-67; p53 is wild-type, and p16 is negative (non-specific background reactivity). B. RIGHT BASE OF TONGUE BIOPSY: Invasive HPV-independent squamous cell carcinoma, well-differentiated, keratinizing. See note. Note: Perineural invasion is present; lymphovascular invasion is not identified. The carcinoma is negative for p16, but p53 is diffusely overexpressed. Combined Positive Score for PD-L1 = 10. Electronically Signed Out By Jhonathan Padilla MD, PHD Resident Pathologist: Harjeet Westfall MD, PHD By his/her signature above, the pathologist listed as making the Final Diagnosis certifies that he/she has personally reviewed the case and confirmed the diagnosis. All slides and stains were of sufficient quality to establish the diagnosis, unless otherwise stated. CLINICAL HISTORY Oropharyngeal cancer; HPV-independent Dysphagia, unspecified type SPECIMENS SUBMITTED: A: LEFT BASE OF TONGUE BIOPSY B: RIGHT BASE OF TONGUE BIOPSY GROSS DESCRIPTION Received 2 containers each labeled with Cody Delgado and A. Received in formalin and labeled left base of tongue , is an aggregate of bray-brown fragments of mucosa measuring 0.8 x 0.5 x 0.2 cm. The specimen has been filtered and entirely submitted into cassette A1. B. Received in formalin and labeled right base of tongue , is an aggregate of bray-brown fragments of mucosa measuring 1.4 x 0.8 x 0.2 cm. The specimen has been filtered and entirely submitted into cassette B1. Grossed by: Bri Cantu Immunohistochemical and in-situ hybridization tests performed at [facility] have been developed and their performance characteristics determined by the [facility] in the Department of Pathology at [facility]. They have not been cleared or approved by the U.S.Food and Drug Administration (FDA); the FDA has determined that such clearance or approval is not necessary. [facility] Clinical History Oropharyngeal cancer; HPV-independent Dysphagia, unspecified type [facility] Final Diagnosis A. LEFT BASE OF TONGUE, BIOPSY: Squamous mucosa with focal mild atypia, and stromal fibrosis. See note. H&E levels examined. Note: Ancillary stains show a low, basal layer reactivity with Ki-67; p53 is wild-type, and p16 is negative (non-specific background reactivity). B. RIGHT BASE OF TONGUE BIOPSY: Invasive HPV-independent squamous cell carcinoma, well-differentiated, keratinizing. See note. Note: Perineural invasion is present; lymphovascular invasion is not identified. The carcinoma is negative for p16, but p53 is diffusely overexpressed. Combined Positive Score for PD-L1 = 10. [facility] Gross Description Received 2 containers each labeled with Cody Delgado and A. Received in formalin and labeled left base of tongue , is an aggregate of bray-brown fragments of mucosa measuring 0.8 x 0.5 x 0.2 cm. The specimen has been filtered and entirely submitted into cassette A1. B. Received in formalin and labeled right base of tongue , is an aggregate of bray-brown fragments of mucosa measuring 1.4 x 0.8 x 0.2 cm. The specimen has been filtered and entirely submitted into cassette B1. [facility] Conversion Type 03/16/2025 3 :23 PM EDT 03/16/2025 5:00 PM EDT Mukesh Mae MD PATHOLOGY ORDERABLES [place] [address], [facility] * ANES ETT DOUBLE LUMEN - AIRWAY LDA (03/16/2025 3:09 PM EDT) Narrative Aden Turner CRNA - 03/16/2025 3:09 PM EDT Aden Turner CRNA 03/16/2025 3:17 PM Airway Placement Procedure Note: Patient was not difficult to intubate. Procedure performed by: fellow/resident/MANAGER CORPORATE STRATEGY Anesthesiologist: Mark Leong MD Fellow/Resident/MANAGER CORPORATE STRATEGY: Aden Turner CRNA Airway procedure initiated at:03/16/2025 3:09 PM and ended at. Personal Protective Equipment: Mask: surgical mask Eye Protection: eye shield Gloves: double gloves Gown: no gown Mask Ventilation: Quality: not attempted Airway Placement: Technique: video laryngoscopy Rapid sequence induction: no Details: Blade type: Glidescope Blade size: LoPro S3 Video view: grade 1 Video Laryngoscopy was: elective Number of attempts: 1 ETT type: cuffed ETT size: 6.5 ETT depth at teeth: 23 Tube position confirmed by: bilateral breath sounds and EtCO2 Outcomes: Evidence of dental injury? no Complications observed? no us Mark Leong MD PA ANESTHESIA Final Result * CT CHEST WITH CONTRAST (12/24/2023 11:12 AM EDT) Anatomical Region Laterality Modality Chest Computed Tomogra phy 12/24/2023 12:4 4 PM EDT Impressions 12/25/2023 12:44 PM EDT No new or enlarging pulmonary nodules to suggest the presence of metastatic disease in the chest. Narrative 12/25/2023 12:[address] CHEST WITH CONTRAST Referring clinician's provided indication for this examination in [facility]: * Advanced head/neck cancer, follow up TECHNIQUE: Multidetector CT of the chest was performed with intravenous contrast using tailored dose modulation techniques. COMPARISON: CT dated 10/20/2022. FINDINGS: Devices/Tubes/Lines: None. Lungs: There are emphysematous changes in the lungs bilaterally. There is linear scarring at the left lung base. There is a stable right. Fissural nodule on series 4 image 158 which likely reflects an intrafissural lymph node. No new or enlarging pulmonary nodules are identified. The airways are clear. Pleura: Normal. No pleural effusion or pneumothorax. Mediastinum: There is atherosclerotic disease of the aorta. There are coronary calcifications. Lymph Nodes: Normal. No enlarged supraclavicular, axillary, mediastinal, or hilar lymph nodes. Upper Abdomen: Normal. No abnormality detected in the visualized upper abdomen. Chest Wall: Normal. No chest wall mass. Bones: Stable height loss in the mid thoracic vertebral bodies. No suspicious osseous lesions. Procedure Note Estela Ramirez MD - 12/25/2023 CT CHEST WITH CONTRAST Referring clinician's provided indication for this examination in [facility]: *Advanced head/neck cancer, follow up TECHNIQUE: Multidetector CT of the chest was performed with intravenouscontrast using tailored dose modulation techniques. COMPARISON: CT dated 10/20/2022. FINDINGS: Devices/Tubes/Lines: None. Lungs: There are emphysematous changes in the lungs bilaterally. There islinear scarring at the left lung base. There is a stable right. Fissuralnodule on series 4 image 158 which likely reflects an intrafissural lymphnode. No new or enlarging pulmonary nodules are identified. The airwaysare clear. Pleura: Normal. No pleural effusion or pneumothorax. Mediastinum: There is atherosclerotic disease of the aorta. There arecoronary calcifications. Lymph Nodes: Normal. No enlarged supraclavicular, axillary, mediastinal,or hilar lymph nodes. Upper Abdomen: Normal. No abnormality detected in the visualized upperabdomen. Chest Wall: Normal. No chest wall mass. Bones: Stable height loss in the mid thoracic vertebral bodies. Nosuspicious osseous lesions. IMPRESSION: No new or enlarging pulmonary nodules to suggest the presence ofmetastatic disease in the chest. Mukesh Mae MD IM CT CHEST Final Result from Last 3 Months or Most Recently Relevant to Health Maintenance Insurance [place] [address] [place] [address] [place] [address] C3 [employer] [facility] D[facility]AL Advance Directives For more information, please contact: [phone] (9AM - 5PM Rosa/[facility], Wednesday-Wednesday) Documents on File Type Date Recorded Patient Field Collector Expl anation Healthcare Proxy 12/16/2022 1:24 PM Care Teams Tent Assembler Relationship Specialty Start Date End Date Nyasia Walters MD [address] [place] [address] PCP - General Internal Medicine 09/01/22 Real Vera DDS, MD [address] [place] [address] [address] [place] [address] [email or web address] benefits manager 09/01/22 Poncho Perkins MD, DARRICKS [address] [place] [address] [email or web address] benefits manager 09/15/22 Additional Source Comments The information contained in this document represents components of the legal health record. It is not the complete legal health record.[facility]
--- OUTSIDE RECORDS SUMMARY | 2025-06-04 11:11 | XMS_ITS | Encounter Summary ---
Author Organization [facility] Address [address] [facility] [address] [place] [address] Phone Care Team Providers Care Sugar House Supervisor Name Role Phone Nyasia Walters MD Primary Care Pr ovider Real eVra DDS, MD Unavailable Poncho Perkins MD, DARRICKS Unavailable [phone] Encounter Details Date Type Department Care Team (Late st Contact Info) Description 10/07/2022 Procedure Pass [facility] [address] [facility], 6th [place] [address] Social History Tobacco Use Types Packs/Day Years Used Date Smoking Tobacco: Every Day Cigarettes 0.5 45.8 Started: 1979 Smokeless Tobacco: Never Alcohol Use Standard Drinks/Week Comments Not Currently 0 (1 standard drink = 0.6 oz pur e alcohol) Sex and Gender Information Value Date Recorded Sex Assigned at Not on file Legal Sex Male 9:47 PM EDT Gender Identity Not on file Sexual Orientation Not on file documented as of this encounter Plan of Treatment Not on file documented as of this encounter Visit Diagnoses Not on filedocumented in this encounter Care Teams Sugar House Supervisor Relationship Specialty Start Date End Date Nyasia Walters MD [address] [place] [address] PCP - General Internal Medicine 09/01/22 Real Vera DDS, MD [address] [place] [address], [place] [address] [place] [address] [email or web address] yarn man 09/01/22 Poncho Perkins MD, DDS [address] [place] [address] [email or web address] yarn man 09/15/22 documented as of this encounter Additional Source Comments The information contained in this document represents components of the legal health record. It is not the complete legal health record.[facility]
--- OUTSIDE RECORDS SUMMARY | 2025-06-04 11:11 | XMS_ITS | Encounter Summary ---
Author Organization [facility] Address [address] [facility] [address] [place] [address] Phone Care Team Providers Care Bistro Server Name Role Phone Nyasia Walters MD Primary Care Pr ovider Real Vera DDS, MD Unavailable Poncho Perkins MD, DARRICKS Unavailable [phone] Encounter Details Date Type Department Care Team (Late st Contact Info) Description 10/07/2022 Procedure Pass [facility] - [facility] [address] [facility] 6th [place] [address] Social History Tobacco Use Types Packs/Day Years [...] on filedocumented in this encounter Care Teams Bistro Server Relationship Specialty Start Date End Date Nyasia Walters MD [address] [place] [address] PCP - General Internal Medicine 09/01/22 Real Vera DDS, MD [address] [place] [address], [facility] [address] [place] [address] [email or web address] combat systems operator 09/01/22 Poncho Perkins MD, DDS [address] [place] [address] [email or web address] combat systems operator 09/15/22 documented as of this encounter Additional Source Comments The information contained in this document represents components of the legal health record. It is not the complete legal health record.[facility]
--- OUTSIDE RECORDS SUMMARY | 2025-06-04 11:11 | XMS_ITS | Encounter Summary ---
Author Organization [employer] Address [address] [facility] 7 [place] [address] Care Team Providers Care Healthcare Receptionist Name Role Phone Nyasia Walters MD Primary Care Provider [phone] Encounter Details Date Type Department Care Team (Late st Contact Info) Description 07/21/2022 Telephone [facility] [address] [place], [place] [phone] Nyasia Walters MD [address] [place], [place] [phone] Social History Tobacco Use Types Packs/Day Years Used Date Smoking Tobacco: Never Assessed Sex and Gender Information Value Date Recorded [...] on filedocumented in this encounter Care Teams Healthcare Receptionist Relationship Specialty Start Date End Date Nyasia Walters MD [address] [place] [address] PCP - General Internal Medicine 08/16/18 documented as of this encounter
--- OUTSIDE RECORDS SUMMARY | 2025-06-04 11:11 | XMS_ITS | Encounter Summary ---
Author Organization [facility] Address [address] [facility] [address] [place] [phone] Phone Care Team Providers Care Marketing Operations Manager Name Role Phone Nyasia Walters MD Primary Care Pr ovider Real Vera DDS, MD Unavailable Poncho Perkins MD, DDS Unavailable + [phone] Encounter Details Date Type Department Care Team (Late st Contact Info) Description 12/11/2022 Procedure Pass [facility]IOP DEPT [address] [place] [address] Social History Tobacco Use Types Packs/Day Years Used Date Smoking Tobacco: Every Day Cigarettes 0.5 45.8 Started: 08/16/1979 Passive Smoke Exposure: Yes Smokeless Tobacco: Never Comments:Has had cigarettes up to week of 12/07/2022. Alcohol Use Standard Drinks/Week Comments Not Currently 0 (1 standard drink = 0.6 oz pur e alcohol) quit drinking 2009 Education Answer Date Recorded Are you interested in more education? Not on sury e 12/11/2022 Are you concerned about learning? Not on file 12/11/2022 No 12/11/2022 No 12/11/2022 Sex and Gender Information Value Date Recorded Sex Assigned at Not on file Legal Sex Male 9:47 PM EDT Gender Identity Not on file Sexual Orientation Not on file documented as of this encounter Plan of Treatment Not on file documented as of this encounter Visit Diagnoses Not on filedocumented in this encounter Care Teams Marketing Operations Manager Relationship Specialty Start Date End Date Nyasia Walters MD [address] [place] [phone] PCP - General Internal Medicine 09/01/22 Real Vera DDS, MD [address] [place] [address], [facility] [address] [place] [address] [email or web address] 09/01/22 Poncho Perkins MD, DDS [address] [place] [address] [email or web address] 09/15/22 documented as of this encounter Additional Source Comments The information contained in this document represents components of the legal health record. It is not the complete legal health record.[facility]
--- OUTSIDE RECORDS SUMMARY | 2025-06-04 11:11 | XMS_ITS | Encounter Summary ---
Author Organization [employer] Address [address] [facility] 7t [place] [address] Care Team Providers Care Associate Director Of Nursing Name Role Phone Nyasia Walters MD Primary Care Provider [phone] Reason for Visit * Reason Onset Date Comments status 08/21/2022 Encounter Details Date Type Department Care Team (Late st Contact Info) Description 08/21/2022 Telephone [facility] [address] [place] [address] Nyasia Walters MD [address] [place] [phone] status Social History Tobacco Use Types Packs/Day Years Used Date Smoking Tobacco: Never Assessed Sex and Gender Information Value Date Recorded Sex Assigned at Male 06/15/2022 10:22 AM EDT Legal Sex Male 10:22 AM EDT Gender Identity Male 06/15/2022 10:22 AM EDT Sexual Orientation Choose not to disclose 2021 10:22 AM EDT COVID-19 Exposure Response Date Recorded In the last 10 days, have yo u been in contact with someone who was confirmed or suspected to have Coronavirus/COVID-19? Unable to assess 08/19/2022 4:14 PM EST documented as of this encounter Miscellaneous Notes * Telephone Encounter - Pascual Choi RN - 08/21/2022 2:19 PM EST Please review message below and advise. Thank you. * Telephone Encounter - Sanchez Westfall - 08/21/2022 2:08 PM EST Tc from pt requesting status on nasal spray ( fluticasone ) Please contact pt at [phone] documented in this encounter Plan of Treatment Not on file documented as of this encounter Visit Diagnoses Diagnosis Other rhinitis documented in this encounter Care Teams Associate Director Of Nursing Relationship Specialty Start Date End Date Nyasia Walters MD [address] [place] [address] PCP - General Internal Medicine 08/16/18 documented as of this encounter
--- OUTSIDE RECORDS SUMMARY | 2025-06-04 11:11 | XMS_ITS | Encounter Summary ---
Author Organization [facility] Address [address] [facility] [address] [place] [address] Phone Care Team Providers Care Marketing Analytics Lead Name Role Phone Nyasia Walters MD Primary Care Pr ovider Real Vera DDS, MD Unavailable Poncho Perkins MD, DARRICKS Unavailable +[phone] Encounter Details Date Type Department Care Team (Late st Contact Info) Description 09/15/2022 Procedure Pass [facility] [address] [facility], 6th [place] [address] Social History Tobacco Use Types Packs/Day Years [...] filedocumented in this encounter Care Teams Marketing Analytics Lead Relationship Specialty Start Date End Date Nyasia Walters MD [address] [place] [address] PCP - General Internal Medicine 09/01/22 Real Vera DDS, MD [address] [place] [address], [facility] [address] [place] [address] [email or web address] university teacher 09/01/22 Poncho Perkins MD, DDS [address] [place] [phone] [email or web address] university teacher 09/15/22 documented as of this encounter Additional Source Comments The information contained in this document represents components of the legal health record. It is not the complete legal health record.[facility]
[2025-06-04 15:22] LABS: Alanine Aminotransferase 30 U/L (0-40); Albumin Level 3.4 g/dL (3.5-5.0); Alkaline Phosphatase 93 U/L (39-117); Anion Gap 14 (12-20); Aspartate Amino Transferase 57 U/L (5-37); Blood Urea Nitrogen 19 mg/dL (9-16); Calcium 9.1 mg/dL (8.4-10.2); Carbon Dioxide 31 mmol/L (22-29); Chloride 99 mmol/L (96-108); Cholesterol 121 mg/dL (<200); Estimated Glomerular Filt Rate > 60; HDL Cholesterol 53 mg/dL (>40); Potassium 3.6 mmol/L (3.3-5.1); Sodium 140 mmol/L (135-145); Total Protein 6.8 g/dL (6.5-8.0); Triglycerides 63 mg/dL (<150)
== END 2025-06-04 09:52 | disposition home or self-care (01) ==
LOC: HO.CHCLDS 09:51
PROVIDERS: Visit Provider Internal Medicine
DX: I25.10 Atherosclerotic heart disease of native coronary artery without angina pectoris (principal); C04.9 Malignant neoplasm of floor of mouth, unspecified
CPT/HCPCS: 36415; 80053; 80061; 84443

== ENCOUNTER 2025-08-15 08:09 | Outpatient (REF) | payer MEDICAID, SELFPAY ==
--- NOTE | ~2025-08-15 | US_ITS ---
EXAMINATION: US COMPLETE ABDOMEN WITH LIVER ELASTOGRAPHY CLINICAL INFORMATION: Transaminitis. COMPARISON: None available. TECHNIQUE: Real-time imaging of the abdominal viscera. Noninvasive ultrasound liver fibrosis assessment is performed using Isaura ElastPQ point quantification shear wave elastography (pSWE) with a C5-2 MHz transducer. Multiple elastography samples are obtained. FINDINGS: PANCREAS: The visualized pancreatic head and body are normal in appearance. The remainder of the pancreas is obscured from visualization by the overlying bowel gas. ABDOMINAL AORTA: There is echogenic atherosclerotic plaques throughout the abdominal aorta without aneurysmal dilatation. INFERIOR VENA CAVA: Visualized portions are normal. LIVER: The liver demonstrates normal size, contour and increased echogenicity. No focal lesion or intrahepatic biliary duct dilatation. The right lobe measures 17.8 cm in length. The left lobe measures 12.5 cm in length. Portal flow is hepatopedal Shear wave liver elastography median stiffness is 0.92 m/s (reference: normal median stiffness is 1.3 m/s or less). IQR/median stiffness to assess sampling precision is 0.3 (reference: good quality data set is IQR/median stiffness of 0.15 or less). GALLBLADDER: Gallbladder is moderately distended with echogenic bile//but no echogenic stones. Gallbladder wall thickness measures 0.49 cm. COMMON BILE DUCT: Normal in caliber measuring 1.15 cm in diameter. RIGHT KIDNEY: No hydronephrosis. No renal calculi or focal parenchymal lesions. The kidney measures 11.8 cm in maximum dimension. LEFT KIDNEY: No hydronephrosis. No renal calculi or focal parenchymal lesions. The kidney measures 10.7 cm in maximum dimension. There is mild increased kidney echogenicity. SPLEEN: The spleen is homogeneous in echotexture with a solitary echogenic intraparenchymal calcification measuring 0.5 at 0.4 x 0.4 cm The spleen measures 9.0 cm in maximum dimension. FREE FLUID: There is perihepatic and perisplenic fluid collection. US/US abdomen comp w elastography IMPRESSION: 1. Mildly echogenic liver without focal lesion. Small splenic granuloma. 4 distended gallbladder with echogenic sludge but no congenital stones. Gallbladder wall thickness is 0.49 cm. Question a calculus cholecystitis. The measurements are corresponding to high probably normal. 2. Liver elastography: Median liver stiffness measures 0.92 m/s corresponding to high probability normal study. REFERENCE: Society of Radiologists in Ultrasound Liver Stiffness Thresholds (2020): LIVER STIFFNESS THRESHOLDS: *Liver Stiffness equal or less than 1.3 m/s: High probability of being normal. *Liver Stiffness less than 1.7 m/s: In the absence of other known clinical signs, rules out compensated advanced chronic liver disease. *Liver Stiffness 1.7-2.1 m/s: Suggestive of compensated advanced chronic liver disease but need further test for confirmation. *Liver Stiffness over 2.1 m/s: Rules in compensated advanced chronic liver disease. *Liver Stiffness over 2.4 m/s: Suggestive of clinically significant portal hypertension. QUALITY OF DATA SET: *IQR/Median value equal or less than 0.15 implies a quality data set. *IQR/Median value over 0.15 implies a poor quality data set. SIGNIFICANT CHANGE FROM PRIOR EXAM: Significant change if liver stiffness measurement is 10% or greater from prior exam. OTHER CONSIDERATIONS: The stage of liver fibrosis may be overestimated in the setting of acute hepatitis, liver inflammation, elevated liver function tests, hepatic vascular congestion, obstructive cholestasis, non-fasting state, and infiltrative diseases such as amyloidosis and lymphoma. In some patients with NAFLD, the liver stiffness thresholds for compensated advanced chronic liver disease may be lower. In causes other than viral hepatitis and NAFLD, liver stiffness thresholds are not well established. Electronically signed by: Roland Coy MD 08/15/2025 09:31 AM ARMANDO
--- OUTSIDE RECORDS SUMMARY | 2025-08-15 08:12 | XMS_ITS | Encounter Summary ---
Author Organization [employer] Address [address] [facility] 7t [place] [address] Care Team Providers Care Meat Boner And Slicer Name Role Phone Nyasia Walters MD Primary Care Provider [phone] Reason for Visit * Reason Onset Date Comments Call Back Request 08/12/2023 Encounter Details Date Type Department Care Team ([facility] Contact Info) Description 08/12/2023 Telephone [facility]EDS [address] [place], [place] [phone] Nyasia Walters MD [address] [place] [address] Call Back Request Social History Tobacco Use [...] half the day. Please contact pt at [phone] documented in this encounter Plan of Treatment Not on file documented as of this encounter Visit Diagnoses Not on filedocumented in this encounter Additional Health Concerns Assessment Noted Time PHQ-9 Depression Total Score: 4 03/11/20 23 1:12 PM EDT documented as of this encounter Care Teams Meat Boner And Slicer Relationship Specialty Start Date End Date Nyasia Walters MD [address] [place] [phone] PCP - General Internal Medicine 08/16/18 documented as of this encounter
--- OUTSIDE RECORDS SUMMARY | 2025-08-15 08:12 | XMS_ITS | Encounter Summary ---
Author Organization [facility] Address [address] [facility] [address] [place] [address] Phone Care Team Providers Care Spare Hand Name Role Phone Nyasia Walters MD Primary Care Pr ovider Real Vera DDS, MD Unavailable Poncho Perkins MD, VIJAYA Unavailable [phone] Encounter Details Date Type Department Care Team (Late st Contact Info) Description 10/07/2022 Procedure Pass [facility] [place] [address] [facility], 6th [place] [address] Social History Tobacco Use Types Packs/Day Years Used Date Smoking Tobacco: Every Day Cigarettes 0.5 46 Started: 1979 Smokeless Tobacco: Never Alcohol Use [...] on filedocumented in this encounter Care Teams Spare Hand Relationship Specialty Start Date End Date Nyasia Walters MD [address] [place] [address] PCP - General Internal Medicine 09/01/22 Real Vera DDS, MD [address] [place] [address], [address] [place] [address] [email or web address] putty remover 09/01/22 Poncho Perkins MD, DARRICKS [address] [place] [phone] [email or web address] putty remover 09/15/22 documented as of this encounter Additional Source Comments The information contained in this document represents components of the legal health record. It is not the complete legal health record.[facility]
--- OUTSIDE RECORDS SUMMARY | 2025-08-15 08:12 | XMS_ITS | Encounter Summary ---
Author Organization [employer] Address [address] [place] [address] [address] Care Team Providers Care Fork Truck Driver Name Role Phone Nyasia Walters MD Primary Care Provider [phone] Reason for Referral * Imaging (Routine) - Authorized Specialty Diagnoses / Procedures Referred By Bubba fountain Referred To Contact Radiology Diagnoses Transaminitis Procedures US Abdomen Comp w elastography Nyasia Walters MD [address] [place] [address] Phone: tel: fax: [address] [address] Phone: tel: fax: Referral ID Status Reason Start Date Expiration Date V isits Requested Visits Authorized [id number] Authorized 06/04/2025 06/04/2026 1 1 Encounter Details Date Type Department Care Team (Late st Contact Info) Description 05/23/2025 Orders Only [facility]S [address] [place], [place] [phone] Nyasia Walters MD [address] [place], [place] [phone] 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); Coronary artery disease involving gulkana coronary artery of gulkana heart without angina pectoris; Transaminitis Social History Tobacco Use Types Packs/Day Years [...] Type Priority Associated Diagnoses Orde r Schedule Smooth Muscle Antibody with Reflex to Titer Lab Routine Transaminitis Expected: 06/04/2025 (Approximate), Expires: 06/04/2026 Immunoglobulins, Quantitative, IgA, IgG, IgM Lab Routine Transaminitis Expected: 06/04/2025 (Approximate), Expires: 06/04/2026 Prothrombin Time-INR Lab Routine Transaminitis Expected: 06/04/2025, Expires: 06/04/2026 Ferritin Lab Routine Transaminitis Expected: 06/04/2025, Expires: 06/04/2026 Iron And Total Iron Binding Capacity Lab Routine Transaminitis Expected: 06/04/2025, Expires: 06/04/2026 Alpha 1 Antitrypsin Lab Routine Transaminitis Expected: 06/04/2025 (Approximate), Expires: 06/04/2026 Hepatitis B Surface Antibody, Qualitative Lab Routine Transaminitis Expected: 06/04/2025 (Approximate), Expires: 06/04/2026 US Abdomen Comp w elastography Imaging Routine Transaminitis Expected: 06/04/2025, Expires: 06/04/2026 Hepatitis Panel, General Lab Routine Transaminitis Expected: 06/04/2025, Expires: 06/04/2026 documented as of this encounter Procedures Procedure Name Priority Date/Time Associated Diagnosis Comments TSH W/REFLEX TO FT4 Routine 06/04/2025 9 :52 AM EDT 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) Coronary artery disease involving gulkana coronary artery of gulkana heart without angina pectoris LIPID PANEL, STANDARD Routine 06/04/2025 9:52 AM EDT 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) Coronary artery disease involving gulkana coronary artery of gulkana heart without angina pectoris COMPREHENSIVE METABOLIC PANEL Routine 06/04/2025 9:52 AM EDT 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) Coronary artery disease involving gulkana coronary artery of gulkana heart without angina pectoris CBC WITH AUTO DIFFERENTIAL Routine 05/24/2025 8:43 AM EDT 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 Co de Phone Number [facility] [address] [place] [phone] [phone] * Lipid Panel, Standard (06/04/2025 9:52 AM EDT) Triglycerides 63 <150 mg/dL [facility] Comment:Desirable Triglyceri de: less than 150 mg/dLBorderline High Triglyceride 150-199 mg/dLHigh Triglyceride: 200-499 mg/dLVery High Triglyceride: greater than or equal to 5OO mg/dL Cholesterol 121 <200 mg/dL [facility] Comment:Desirable Cholestero l: less than 200 mg/dLBorderline High Cholesterol: 200-239 mg/dLHigh Cholesterol: greater than 239 mg/dL LDL Cholesterol Calculated 56 <100 mg/dL [facility] Comment:Desirable LDL: less than 100 mg/dLNear Optimal/Above Optimal LDL: 110- 129 mg/dLBorderline High LDL: 130-159 mg/dLHigh LDL: 160-189 mg/dLVery High LDL: greater than or equal to 190 mg/dL HDL Cholesterol 53 >40 mg/dL [facility] Comment:Desirable HDL: great er than 40 mg/dL Note: This HDL assay may give artificially low results in patients with liver disease. Blood Venous blood specimen / Unknown 06/04/2025 9:52 AM EDT 06/04/2025 2:46 PM EDT us Nyasia Walters MD LAB BLOOD ORDERABLES Final Result Performing Organization Address City/[facility]/ZIP Co de Phone Number [facility] [address] [place] [phone] [phone] * (ABNORMAL) Comprehensive Metabolic Panel (06/04/2025 9:52 AM EDT) Sodium 140 135 - 145 mmol/L [facility] Potassium 3.6 3.3 - 5.1 mmol/L [facility] Chloride 99 96 - 108 mmol/L [facility] Carbon Dioxide 31(H) 22 - 29 mmol/L [facility] Anion Gap 14 12 - 20 [facility] Urea Nitrogen (BUN) 19(H) 9 - 16 mg/dL [facility] Creatinine, Serum 0.74 0.5 - 1.4 mg/dL [facility] Estimated Glomerular Filt Rate >60 [facility] Comment:Chronic Kidney Disea se: Estimated GFR < 60 mL/min/1.23e3Mhkgkc Kidney Disease: Estimated GFR < 15 mL/min/1.73m2 Glucose 98 60 - 115 mg/dL [facility] Calcium 9.1 8.4 - 10.2 mg/dL [facility] Bilirubin, Total 0.4 0.0 - 1.0 mg/dL [facility] Aspartate Amino Transferase 57(H) 5 - 37 U/L [facility] Alanine Aminotransferase 30 0 - 40 U/L [facility] Total Protein 6.8 6.5 - 8.0 g/dL [facility] Albumin Level 3.4(L) 3.5 - 5.0 g/dL [facility] Alkaline Phosphatase 93 39 - 117 U/L [facility] Blood Venous blood specimen / Unknown 06/04/2025 9:52 AM EDT 06/04/2025 2:46 PM EDT us Nyasia Walters MD LAB BLOOD ORDERABLES Final Result [facility] [address] [place], [place] [phone] * (ABNORMAL) CBC auto differential (05/24/2025 8:43 AM EDT) Pathologist [facility] White Blood Count 5.8 4.8 - 10.8 X10*3/uL [facility] Red Blood Count 4.28(L) 4.60 - 5.80 X10*6/uL [facility] Hemoglobin 13.7(L) 14.0 - 18.0 g/dl [facility] Hematocrit 42.3 42.0 - 52.0 % [facility] Mean Corpuscular Volume 98.8(H) 80.0 - 98.0 fL [facility] Mean Corpuscular Hemoglobin 32.0 27.0 - 33.0 pg [facility] Mean Corpuscular HGB Conc 32.4 31.0 - 36.0 g/dl [facility] Red Cell Distribution Width 15.8 11.0 - 16.0 % [facility] Platelet Count 241 160 - 400 X10*3/uL [facility] Mean Platelet Volume 10.3 9.4 - 12.4 fL [facility] Neutrophils Percent Auto 79.6(H) 45 - 73 % [facility] Imm Gran Pct Auto 0.5(H) 0.0 - 0.4 % [facility] Lymphocytes Percent Auto 7.4(L) 20 - 40 % [facility] Monocytes Percent Auto 10.8 2 - 11 % [facility] Eosinophils Percent Auto 1.4 0 - 4 % [facility] Basophils Percent Auto 0.3 0 - 2 % [facility] NRBC Pct Auto 0.0 0.0 - 0.2 /100WBC [facility] Neutrophils Absolute Auto 4.6 2.0 - 8.3 x10*3/uL [facility] Imm Gran Abs Auto 0.03 0.00 - 0.03 X10*3/uL [facility] Lymphocytes Absolute Auto 0.4(L) 1.2 - 4.9 X10*3/uL [facility] Monocytes Absolute Auto 0.6 0.1 - 1.2 X10*3/uL [facility] Eosinophils Absolute Auto 0.1 0.0 - 0.4 X10*3/uL [facility] Basophils Absolute Auto 0.0 0.0 - 0.2 X10*3/uL [facility] NRBC Abs Auto 0.000 0.0 - 0.012 X10*3/uL [facility] Blood Venous blood specimen / Unknown 05/24/2025 8:43 AM EDT 05/24/2025 2:26 PM EDT Nyasia Walters MD LAB BLOOD ORDERABLES Final Result [facility] [address] [place] [phone] [phone] documented in this encounter Visit Diagnoses Diagnosis 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 Malignant neoplasm of floor of mouth, part unspecified Coronary artery disease involving gulkana coronary artery of gulkana heart without angina pectoris Transaminitis Nonspecific elevation of levels of transaminase or lactic acid dehydrogenase (LDH) documented in this encounter Additional Health Concerns Assessment Noted Time PHQ-9 Depression Total Score: 5 11/07/19 25 2:49 PM EDT documented as of this encounter Care Teams Fork Truck Driver Relationship Specialty Start Date End Date Nyasia Walters MD [address] [place] [phone] PCP - General Internal Medicine 08/16/18 documented as of this encounter
--- OUTSIDE RECORDS SUMMARY | 2025-08-15 08:12 | XMS_ITS | Encounter Summary ---
Author Organization [employer] Address [address] [facility] 7t [place] [address] Care Team Providers Care Network Pricing Consultant Name Role Phone Nyasia Walters MD Primary Care Provider [phone] Reason for Visit * Reason Comments Med Refill Encounter Details Date Type Department Care Team ([facility] st Contact Info) Description 10/08/2024 Refill [facility]EDS [address] [place], [place] [phone] Nyasia Walters MD [address] [place] [address] Nasal congestion Social History Tobacco Use Types [...] documented as of this encounter Care Teams Network Pricing Consultant Relationship Specialty Start Date End Date Nyasia Walters MD [address] [place] [phone] PCP - General Internal Medicine 08/16/18 documented as of this encounter
--- OUTSIDE RECORDS SUMMARY | 2025-08-15 08:12 | XMS_ITS | Clinical Summary ---
Author Organization [employer] Address [address] [facility] [address] [place] [address] Care Team Providers Care Flat Polisher Name Role Phone Nyasia Walters MD Primary Care Provider [phone] Allergies No known active allergies Medications amoxicillin (Amoxil) 400 MG/5ML suspension TAKE 5 ML (400 MG TOTAL) BY MOUTH 2 (TWO) TIMES A DAY. 023 Active chlorhexidine (Peridex) 0.12 % solution Place 0.018 g into mouth between cheek and gum. 022 Active fentaNYL (Duragesic) 12 MCG/HR Apply topically. 022 Active pentoxifylline (Trental) 400 MG ER tablet TAKE 1 TABLET BY MOUTH 3 TIMES A DAY WITH MEALS. 023 Active pantoprazole (ProtoNix) 40 MG EC tabletIndication s:Elizabeth's esophagus without dysplasia TAKE 1 TABLET (40 MG) BY MOUTH 2 TIMES DAILY. DO NOT CRUSH, CHEW, OR SPLIT. 180 tablet 3 024 Active heparin flush 100 units/mL solution 100 Units by Intracatheter route Once per day. Active OXYCODONE HCL PO Take 20 mg by mouth. Active lidocaine (Xylocaine) 2 % solution Take 5 mL by mouth if needed for mild pain or moderate pain. SWISH 5 ML AND SPIT OR SWALLOW 4 TIMES A DAY NEEDED BEFORE EATING FOR MOUTH SORE PAIN 025 Active thiamine (Vitamin B-1) 100 MG tablet Take 1 tablet by mouth Once per day. 025 Active levothyroxine (Tirosint) 50 MCG capsule Take 50 mcg by mouth before breakfast. Active Elastic Bandages & Supports (Medical Compression Stockings) miscIndications: Venous insufficiency 15/20 mm Hg, Knee high compression stockings. 2 each 1 Active Ventolin HFA 108 (90 Base) MCG/ACT inhaler INHALE 2 PUFFS EVERY 6 HOURS IF NEEDED FOR WHEEZING. 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 61121 mL 11 025 2025 Active atorvastatin (Lipitor) 80 MG tabletIndication s:Coronary artery disease involving [place] coronary artery of [place] heart without angina pectoris TAKE 1 TABLET BY MOUTH EVERY DAY IN THE MORNING 90 tablet 1 025 Active atorvastatin (Lipitor) 80 MG tabletIndication s:Coronary artery disease involving [place] coronary artery of [place] heart without angina pectoris TAKE 1 TABLET BY MOUTH EVERY DAY IN THE MORNING 90 tablet 1 025 2024 Discontinued Active Problems Problem Noted Date Diagnosed Date [...] Encounters Date Type Department Care Team Description 08/13/2025 Telephone [facility] [address] [place] [address] Nyasia Walters MD Call Back Request 08/01/2025 Refill [facility] [address] [place] [address] Nyasia Walters MD Coronary artery disease involving white mountain coronary artery of [place] heart without angina pectoris 07/24/2025 Orders Only [facility] [address] [place] [address] Nyasia Walters MD 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) 07/02/[address] [address] Nyasia Walters MD Durable Medical Equipment 06/26/2025 Refill [facility] [address] [place] [address] Nyasia Walters MD 06/12/[address] [address] Nyasia Walters MD Call Back Request 06/11/2025 Telephone [facility] [address] [place] [address] Nyasia Walters MD Call Back Request 06/05/2025 Results Follow-Up [address] [address] Sharon Varghese, JUAN ALBERTO CBC auto differential, Comprehensive Metabolic Panel, Lipid Panel, Standard, TSH with Reflex to Free T4 05/23/2025 Telephone [facility] [address] [place] [address] Nyasia Walters MD Lab Orders 05/23/2025 Orders Only [facility] [address] [place] [address] Nyasia Walters MD 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); Coronary artery disease involving white mountain coronary artery of white [place] heart without angina pectoris; Transaminitis 05/17/2025 9:45 AM EDT Procedure Visit [facility] [address] [place] [address] Stacye Mac MD Chronic right shoulder pain (Primary Dx) 05/17/2025 Travel from Last 3 Months Immunizations Immunization Administration [...] FIT 1960 FOBT 1960 HIV Screening 1960 Sigmoidoscopy 1960 Hepatitis C Screening 1978 Pneumococcal Vaccine: 50+ Years (2 of 2 - PCV) 05/31/2008 05/31/2007 RSV Patients and Patients Aged 60 years or older (1 - Risk 50-74 years 1-dose series) 2010 Zoster Vaccines (1 of 2) 2010 Lung Cancer Screening 02/18/2023 02/18/2022 , 09/08/2021 COVID-19 Vaccine (1 - 2024-2 6 season) 2025 Influenza Vaccine (#1) 2025 9, 05/31/2007 Alcohol/Substance Use Screening 11/06/2025 11/06/2024 Depression Screening 11/06/2025 11/06/2024, 11/06/2024 SDOH Screening 11/06/2025 11/06/2024 DTaP/Tdap/Td Vaccines (2 - T d or Tdap) 11/18/2025 11/19/2015, 08/16/2004 Disability Screening 05/10/2026 05/10/2025 Tobacco Screening 05/17/2026 05/17/2025 Lipid Panel 06/04/2030 06/04/2025 HIB Vaccines Aged Out No longer eligi [...] mouth (CMS/HCC) (HCC) Coronary artery disease involving white [place] coronary artery of [place] heart without angina pectoris LIPID PANEL, STANDARD Routine 06/04/2025 9:52 AM EDT 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) Coronary artery disease involving [place] coronary artery of [place] heart without angina pectoris COMPREHENSIVE METABOLIC PANEL Routine 06/04/2025 9:52 AM EDT 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) Coronary artery disease involving [place] coronary artery of [place] heart without angina pectoris CBC WITH AUTO DIFFERENTIAL Routine 05/24/2025 8:43 AM EDT 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) Coronary artery disease involving [place] coronary artery of [place] heart without angina pectoris [place] ARTHROCENTESIS ASPIR&/INJ MAJOR JT/BURSA W/O US Routine 05/17/2025 10:06 AM EDT Chronic right shoulder pain from Last 3 Months Results * TSH with Reflex to Free T4 (06/04/2025 9:52 AM EDT) TSH reflex Free T4 2.01 0.32 - 4.0 uIU/mL [facility] Blood Venous blood specimen / Unknown 06/04/2025 9:52 AM EDT 06/04/2025 2:46 PM EDT us Nyasia Walters MD LAB BLOOD ORDERABLES Final Result [facility] [address] [place] [phone] * Lipid Panel, Standard (06/04/2025 9:52 AM EDT) Triglycerides 63 <150 mg/dL [facility] Comment:Desirable Triglyceri de: less than 150 mg/dLBorderline High Triglyceride 150-199 mg/dLHigh Triglyceride: 200-499 mg/dLVery High Triglyceride: greater than or equal to 5OO mg/dL Cholesterol 121 <200 mg/dL [facility] Comment:Desirable Cholestero l: less than 200 mg/dLBorderline High Cholesterol: 200-239 mg/dLHigh Cholesterol: greater than 239 mg/dL LDL Cholesterol Calculated 56 <100 mg/dL [facility] Comment:Desirable LDL: less than 100 mg/dLNear Optimal/Above Optimal LDL: 110- 129 mg/dLBorderline High LDL: 130-159 mg/dLHigh LDL: 160-189 mg/dLVery High LDL: greater than or equal to 190 mg/dL HDL Cholesterol 53 >40 mg/dL [facility] Comment:Desirable HDL: great er than 40 mg/dL Note: This HDL assay may give artificially low results in patients with liver disease. Blood Venous blood specimen / Unknown 06/04/2025 9:52 AM EDT 06/04/2025 2:46 PM EDT us Nyasia Walters MD LAB BLOOD ORDERABLES Final Result [facility] [address] [place] [phone] * (ABNORMAL) Comprehensive Metabolic Panel (06/04/2025 9:52 AM EDT) Sodium 140 135 - 145 mmol/L [facility] Potassium 3.6 3.3 - 5.1 mmol/L [facility] Chloride 99 96 - 108 mmol/L [facility] Carbon Dioxide 31(H) 22 - 29 mmol/L [facility] Anion Gap 14 12 - 20 [facility] Urea Nitrogen (BUN) 19(H) 9 - 16 mg/dL [facility] Creatinine, Serum 0.74 0.5 - 1.4 mg/dL [facility] Estimated Glomerular Filt Rate >60 [facility] Comment:Chronic Kidney Disea se: Estimated GFR < 60 mL/min/[id number] Kidney Disease: Estimated GFR < 15 mL/min/1.73m2 Glucose 98 60 - 115 mg/dL [facility] Calcium 9.1 8.4 - 10.2 mg/dL [facility] Bilirubin, Total 0.4 0.0 - 1.0 mg/dL [facility] Aspartate Amino Transferase 57(H) 5 - 37 U/L [facility] Alanine Aminotransferase 30 0 - 40 U/L [facility] Total Protein 6.8 6.5 - 8.0 g/dL [facility] Albumin Level 3.4(L) 3.5 - 5.0 g/dL [facility] Alkaline Phosphatase 93 39 - 117 U/L [facility] Blood Venous blood specimen / Unknown 06/04/2025 9:52 AM EDT 06/04/2025 2:46 PM EDT us Nyasia Walters MD LAB BLOOD ORDERABLES Final Result Performing Organization Address City/[facility]/ZIP Co de Phone Number [facility] [address] [place] [phone] * (ABNORMAL) CBC auto differential (05/24/2025 8:43 AM EDT) White Blood Count 5.8 4.8 - 10.8 X10*3/uL [facility] Red Blood Count 4.28(L) 4.60 - 5.80 X10*6/uL [facility] Hemoglobin 13.7(L) 14.0 - 18.0 g/dl [facility] Hematocrit 42.3 42.0 - 52.0 % [facility] Mean Corpuscular Volume 98.8(H) 80.0 - 98.0 fL [facility] Mean Corpuscular Hemoglobin 32.0 27.0 - 33.0 pg [facility] Mean Corpuscular HGB Conc 32.4 31.0 - 36.0 g/dl [facility] Red Cell Distribution Width 15.8 11.0 - 16.0 % [facility] Platelet Count 241 160 - 400 X10*3/uL [facility] Mean Platelet Volume 10.3 9.4 - 12.4 fL [facility] Neutrophils Percent Auto 79.6(H) 45 - 73 % [facility] Imm Gran Pct Auto 0.5(H) 0.0 - 0.4 % [facility] Lymphocytes Percent Auto 7.4(L) 20 - 40 % [facility] Monocytes Percent Auto 10.8 2 - 11 % [facility] Eosinophils Percent Auto 1.4 0 - 4 % [facility] Basophils Percent Auto 0.3 0 - 2 % [facility] NRBC Pct Auto 0.0 0.0 - 0.2 /100WBC [facility] Neutrophils Absolute Auto 4.6 2.0 - 8.3 x10*3/uL [facility] Imm Gran Abs Auto 0.03 0.00 - 0.03 X10*3/uL [facility] Lymphocytes Absolute Auto 0.4(L) 1.2 - 4.9 X10*3/uL [facility] Monocytes Absolute Auto 0.6 0.1 - 1.2 X10*3/uL [facility] Eosinophils Absolute Auto 0.1 0.0 - 0.4 X10*3/uL [facility] Basophils Absolute Auto 0.0 0.0 - 0.2 X10*3/uL [facility] NRBC Abs Auto 0.000 0.0 - 0.012 X10*3/uL [facility] Blood Venous blood specimen / Unknown 05/24/2025 8:43 AM EDT 05/24/2025 2:26 PM EDT us Nyasia Walters MD LAB BLOOD ORDERABLES Final Result [facility] [address] [place] [phone] * [place] ARTHROCENTESIS ASPIR&/INJ MAJOR JT/BURSA W/O US (05/17/2025 10:06 AM EDT) Narrative Stacey Mac MD - 05/17/2025 10:06 AM EDT Stacey Mac MD 05/17/2025 10:11 AM Arthrocentesis Date/Time: 05/17/2025 10:06 AM Performed by: Stacey Mac MD Authorized by: Stacey Mac MD Consent: Consent obtained: Verbal and written Consent given by: Patient Risks, benefits, and alternatives were discussed: yes Risks discussed: Pain Alternatives discussed: Referral [place] protocol: Procedure explained and questions answered to [...] details: Dressing: Adhesive bandage Procedure completion: Tolerated us Stacey Mac MD IN CLINIC/BEDSIDE ORDERABLES Fin al Result from Last 3 Months Insurance [facility] C3 Care Teams Flat Polisher Relationship Specialty Start Date End Date Nyasia Walters MD [address] [place] [phone] PCP - General Internal Medicine 08/16/18
--- OUTSIDE RECORDS SUMMARY | 2025-08-15 08:12 | XMS_ITS | Encounter Summary ---
Author Organization [employer] Address [address] [facility] [address] [place] [address] Care Team Providers Care Adjuster Piano Action Name Role Phone Nyasia Walters MD Primary Care Provider [phone] Reason for Visit * Reason Onset Date Comments Medication Question 07/19/2023 Encounter Details Date Type Department Care Team ([facility] st Contact Info) Description 07/19/2023 Telephone [facility] [address] [place], [place] [phone] Nyasia Walters MD [address] [place] [address] Medication Question Social History Tobacco Use Types [...] 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 Placed call to pt to inform of POC. LVM to return call PRN to nurses. * Telephone Encounter - Andrews Montes - 07/21/2023 11:46 AM EST Tc from pt regarding requesting call back regarding medication not covered by insurance. Please contact pt at [phone]. * Telephone Encounter - Korin Hastings RN - 07/20/2023 9:59 AM EST Noted. Placed call to pt and informed of alternative spray. Pt agrees with plan. * Telephone Encounter - Korin Hastings RN - 07/19/2023 3:17 PM EST Placed call to [facility] regarding message below. Azelastine is ready for machine operator picker but Flonase is too soonand cannot [...] documented as of this encounter Care Teams Adjuster Piano Action Relationship Specialty Start Date End Date Nyasia Walters MD [address] [place] [phone] PCP - General Internal Medicine 08/16/18 documented as of this encounter
--- OUTSIDE RECORDS SUMMARY | 2025-08-15 08:12 | XMS_ITS | Data Portability ---
Author Organization [place] [facility], Allergy Address [address] [address] Care Team Providers Care Physician Allergist Immunologist Name Role Phone CHELSY WESTBROOK Primary Care Provider Assessment No assessment recorded. Plan of Treatment Reminders Order Date Submit Date Provider Last Modified By Organization Details Last Modified Time Details Appointments None recorded. Lab None recorded. Referral None recorded. Procedures None recorded. Surgeries None recorded. Imaging None recorded. Medication Orders ipratropium bromide 21 mcg (0.03 %) nasal spray 2024 025 [facility][id number], [address] [place], [address], 14:06:09 Patient TargetsNo targets recorded. 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 Presently receiving immunotherapy. He has dysarthria and evidence of scarring in the oral cavity. He has a chronic anterior mandibular fistula. I do not see any evidence of obvious disease. It is hard to explain why he has chronic pain other than from the side effects of his treatment. 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 Defer to oncology for pain control [email or web address] Not available 09/06/2024 12:58:35 Reason for Referral None Reported. Results Created Date Observation Date Name Description Value Unit Range Abnormal Flag Note LastModifiedBy Organization Detail LastModifiedTime 01/11/20 25 11/16/2024 CT, neck, soft tissu e, w/ contr ast No observ ation record ed. [email or web address] Not Available 13:05:11 Result Notes None recorded. 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 107 Active 2016 Personal history of malignant neoplasm: Other and unspecifi ed oral cavity and pharynx; Note: Date Diagnosed : 7 2:09 PM (V10.02) Not Available [facility] 4 03:31:42 Deviated nasal septum 164398645 Active 2024 CLAYTON SMART MD [address], [place], [address] , [facility] - [facility] 5 14:05:30 Chronic rhinitis 27252010 Active 2024 CLAYTON SMART MD [address], [place], [address] , [facility] - [facility] 5 14:05:34 Vasomotor rhinitis 4915916 Active 2024 CLAYTON SMART MD [address], [place], [address] , [facility] - [facility] 5 14:05:36 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 Procedures Surgical History Date Name Laterality Status Provider Name and Address Organization Details Recorded Time reconstruction of floor of mouth completed CLAYTON CAVANAUGH MD [address], [place], [address], [facility] - [facility] 09/05/2024 17:35:11 Imaging Results None recorded. Procedure Notes None recorded. Medical Equipment None Reported. Medications Name Sig Start Date Stop Date Status Note LastModified by Organization Details LastModified Time fentanyl 50 mcg/hr transderm al patch TAKE 1 PATCH TOPICALL Y EVERY 72 HOURS, APPLY TO SKIN- DOSE REDUCTIO N OF 05/08/24. active Not Available Not Available No t Available atorvasta tin 80 mg tablet TAKE 1 TABLET BY MOUTH EVERY DAY IN THE MORNING active Not Available Not Available No t Available Lidocaine Viscous 2 % mucosal solution PLEASE SEE ATTACHED FOR DETAILED DIRECTIO NS active Not Available Not Available No t Available ondansetr on HCl 8 mg tablet TAKE 1 TABLET BY MOUTH EVERY 8 HOURS NEEDED FOR NAUSEA/V OMITING active Not Available Not Available No t Available thiamine HCl (vitamin B1) 100 mg tablet TAKE 1 TABLET BY MOUTH EVERY DAY active Not Available Not Available No t Available prochlorp erazine maleate 10 mg tablet TAKE 1 TABLET BY MOUTH EVERY 6 HOURS NEEDED FOR NAUSEA/V OMITING active Not Available Not Available No t Available oxycodone 15 mg tablet PLEASE SEE ATTACHED FOR DETAILED DIRECTIO NS active Not Available Not Available No t Available famotidin e 20 mg tablet TAKE 1 TABLET BY MOUTH TWICE A DAY active Not Available Not Available No t Available pantopraz ole 40 mg tablet,de layed release TAKE 1 TABLET (40 MG) BY MOUTH 2 TIMES DAILY. DO NOT CRUSH, CHEW, OR SPLIT. active Not Available Not Available No t Available gabapenti n 300 mg capsule TAKE 1 CAPSULE BY MOUTH 3 TIMES A DAY active Not Available Not Available No t Available amoxicill in 400 mg/5 mL oral suspensio n GIVE 5 ML BY MOUTH 2 TIMES A DAY. 09/05 completed Not Available Not Available Not Available gabapenti n 100 mg capsule PLEASE SEE ATTACHED FOR DETAILED DIRECTIO NS active Not Available Not Available No t Available azelastin e 137 mcg (0.1 %) nasal spray ADMINIST ER 1 SPRAY INTO EACH NOSTRIL 2 TIMES DAILY. USE IN EACH NOSTRIL DIRECTED active Not Available Not Available No t Available fentanyl 25 mcg/hr transderm al patch APPLY 1 PATCH EVERY 72 HOURS active Not Available Not Available No t Available fentanyl 75 mcg/hr transderm al patch APPLY 1 PATCH TOPICALL Y EVERY 72 HOURS active Not Available Not Available No t Available ipratropi um bromide 21 mcg (0.03 %) nasal spray SPRAY 2 SPRAYS BY INTRANAS AL ROUTE 3 TIMES A DAY 2024 active Not Available Not Available Not Avai lable Ventolin HFA 90 mcg/actua tion aerosol inhaler INHALE 2 PUFFS EVERY 6 HOURS IF NEEDED FOR WHEEZING . active Not Available Not Available No t Available oxycodone 5 mg tablet 2016 active Medicati on ID: [id number] D uration Value: 4 Brand Name: oxycodon e Send Method: E-Prescr ibed Sub s Allowed: subs OK Speci al Instruct ion: TAKE 2 TABLETS BY MOUTH EVERY 4 HOURS NEEDED FOR PAIN Med icationG enericNa me: oxycodon e Not Available Not Available Not Available chlorhexi dine gluconate 0.12 % mouthwash RINSE WITH 15 ML BY MOUTH SWISH AND SPIT 2 TIMES A DAY active Not Available Not Available No t Available oxycodone 20 mg tablet TAKE 1 TABLET BY MOUTH EVERY 4 HOURS NEEDED FOR PAIN FOR 14 DAYS active Not Available Not Available No t Available oxycodone 10 mg tablet TAKE 1 TABLET BY MOUTH (WITH 20MG TAB FOR 30MG TOTAL) EVERY 4 HOURS FOR 14 DAYS NEEDED FOR PAIN active Not Available Not Available No t Available vitamin E (dl, acetate) 180 mg (400 unit) capsule TAKE 1 CAPSULE BY MOUTH ONCE PER DAY. active Not Available Not Available No t Available levothyro xine 50 mcg capsule TAKE 1 CAPSULE BY MOUTH EVERY DAY active Not Available Not Available No t Available Vitals Date Recorded Body height Body mass index (BMI) Body weight Provider Name and Address Organization Details Last Updated DateTime 09/05/2024 180.34 cm 19.2 kg/m2 94051.75 g Avery Lopes [place] [facility] 09/05/2024 13:43:14 Social History None recorded. Functional Status None recorded. Mental Status None recorded. Family History Nothing Reported. Medical History Condition Response Emphysema Y Heart Attack ([place]) Y Cancer Y Past Encounters Encounter ID Performer Location Encounter Start Date Encounter Closed Date Diagnosis/Indication Diagnosis SNOMED-CT Code Diagnosis ICD10 Code Diagnosis IMO Codes Diagnosis Note [id number] CLAYTON SMART MD [facility] [address] [address] 09/05/2024 13:08:40 09/05/2024 14:07:39 Deviated nasal septum 307381639 J34.2 Chronic rhinitis 7342900 6 J31.0 stop azelastine and loratadine History of malignant neoplasm of oral cavity 076939445 Z85.819 Osteoradio necrosis of mandible 560701109 M27.2 Health Concerns Section Related Observation LastModified by Organization Detai ls LastModified Time None Recorded Concern Status LastModified by Organization Details LastModified Time None Recorded Advance Directives Directive None Recorded Payers Insurance Date Sequence Insurance Name Policy Number Policy Shaikh Covered Member ID Shaikh Member ID Guarantor Name 09/05/2024 1 [place] [facility] Cody Reid Danny Boyce [id number] Cody Delgado Jr Notes Date Note Type Note Provider Name and Address Organization Details Recorded Time 09/05/2024 text/html ROS as noted in the HPI Hx of stage 4 SCCA 2013. Had surgery with Yessica Vera and Jayda resection radial forearm flap and post op XRT. Had plate extrusion and hardware removed by Dr Mae . 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 Has chronic nasal d/c. Followed at [facility] for BOT CA bx 4Chronic mouth painRemote hx of cocaine useCurrent 6 cigs per dayDrinks 6 cans of Boost per dayReports recent PET scan neg. Presently on immunotherapy for BOT tumor from Oncology NoteThe patient had HBO therapy in for ORN at the left posterior mandible. The patient underwent EUA and the hardware removal on December 11, 2022. The patient was evaluated by Dr. Mae who performed fiber-optic laryngoscopy on December 22, 2023 which found right the posterior tongue with shallow ulcer at the right a posterior dorsal aspect going to worse vallecula. The patient underwent direct laryngoscopy with biopsy December 31, 2023. The patient was found to have focal ulceration and deformities centered at the right base of the tongue. The biopsy revealed squamous cell carcinoma, p16 negative. CT neck of December 22, 2023 showed new ulcerative lesion in the right tongue base. CT chest of December 24, 2023 showed no new or enlarging pulmonary nodules to suggest metastatic disease in the chest.TREATMENT:-Cycle one of carboplatin/Taxol/pemb rolizumab was started on 02/04/24-Cycle 2 of the therapy on 02/25/24. Went well-Cycle 3 of therapy on 03/20/24-Cycle 4 of therapy was delayed due to severe anemia and thrombocytopenia-cycle 4 of the therapy with pembrolizumab alone on 04/18/24-cycle 5 of therapy with pembrolizumab alone on 05/08/24-cycle 6 of therapy with pembrolizumab alone on 05/29/24-cycle 7 of therapy with pembrolizumab alone on 06/19/24-cycle 8 of therapy with pembrolizumab alone on 07/10/24-cycle 9 of therapy with pembrolizumab alone on 08/07/24 (400mg once ever 6 weeks) CLAYTON CAVANAUGH MD [address] [place] [address], [place], [address], [facility] - [facility] 09/06/2024 12:59:13
--- OUTSIDE RECORDS SUMMARY | 2025-08-15 08:12 | XMS_ITS | Encounter Summary ---
Author Organization [employer] Address [address] [facility] 7t [place] [address] Care Team Providers Care Head Waiter Name Role Phone Nyasia Walters MD Primary Care Provider [phone] Reason for Visit * Reason Onset Date Comments Appointment Request 01/14/2024 Referral 01/14/2024 Encounter Details Date Type Department Care Team (Late st Contact Info) Description 01/14/2024 Telephone [facility] [address] [place] [address] Nyasia Walters MD [address] [place] [address] [phone] Appointment Request; Referral Social History Tobacco Use [...] documented as of this encounter Care Teams Head Waiter Relationship Specialty Start Date End Date Nyasia Walters MD [address] [place] [address] PCP - General Internal Medicine 08/16/18 documented as of this encounter
--- OUTSIDE RECORDS SUMMARY | 2025-08-15 08:12 | XMS_ITS | Clinical Summary ---
Author Organization [facility] Address [address] [facility] [address] [place] [address] Phone Care Team Providers Care Automobile Drivers Name Role Phone Nyasia Walters MD Primary Care Pr ovider Real Vera DDS, MD Unavailable Poncho Perkins MD, DDS Unavailable [phone] Allergies No known active allergies Medications atorvastatin [...] Additional Information Patient not taking.Reported on 03/16/2025 fentaNYL (DURAGESIC) 75 mcg/hr Place 1 patch [...] every 4 (four) hours as needed. Active amoxicillin (AMOXIL) 400 mg/5 mL suspension TAKE 1 TEASPOONFUL (5 MLS) BY MOUTH TWICE A DAY 200 mL 11 5 Active Active Problems Problem Noted Date Diagnosed Date Chronic pain 03/16/2025 Hyperlipidemia 03/16/2025 Chronic obstructive pulmonary disease (COPD) 08/2024 AL (myocardial infarction) 03/16/2025 History of heart artery stent 03/16/2025 GERD (gastroesophageal reflux disease) 5 Resolved Problems Problem Noted Date Diagnosed Date Resolved Date Hypertension 03/16/2025 03/16/2025 Encounters Date Type Department Care Team Description 06/06/2025 Refill [facility] [address] [place] [address] Mukesh Mae MD Med Change Request from Last 3 Months Social History Tobacco Use Types Packs/Day Years Used Date Smoking Tobacco: Every Day Cigarettes 0.5 46 Started: 08/16/1979 Passive Smoke Exposure: Yes Smokeless [...] 12/23/2024 12/24/2023, 10/20/2022 INFLUENZA VACCINE (#1) 2025 9, 05/31/2007 COVID-19 VACCINE (1 - 2024-2 6 [...] this topic Medical Devices Implanted Type Area Tugboat Engineer Device Identifier Shelf Expiration Date Model / Serial / Lot Stent X1 Explanted Type Area Tugboat Engineer Device Identifier Shelf Expiration Date Model / Serial / Lot Oral Hardware Description:Patient reports explanted Procedures Procedure Name Priority Date/Time Associated Diagnosis Comments CT CHEST WITH CONTRAST Urgent/patient waiting 12/24/2023 11:12 AM EDT Cancer of oral cavity from Last 3 Months or Most Recently Relevant to Health Maintenance Results * CT CHEST WITH CONTRAST (12/24/2023 11:12 AM EDT) Anatomical Region Laterality Modality Chest Computed Tomogra phy 12/24/2023 12:4 4 PM EDT Impressions 12/25/2023 12:44 PM EDT No new or enlarging pulmonary nodules to suggest the presence of metastatic disease in the chest. Narrative 12/25/2023 12:[address] CHEST WITH CONTRAST Referring clinician's provided indication for this examination in [facility]: * Advanced head/neck cancer, follow up [...] clinician's provided indication for this examination in [facility]: *Advanced head/neck cancer, follow up TECHNIQUE: [...] disease in the chest. Mukesh Mae MD IMG CT CHEST Final Result from Last 3 Months or Most Recently Relevant to Health Maintenance Insurance [facility] [address] [facility] Advance Directives For more information, please contact: [phone] (9AM - 5PM [facility], Wednesday-Wednesday) Documents on File Type Date Recorded Patient Temporary Receptionist Expl anation Healthcare Proxy 12/16/2022 1:24 PM Care Teams Automobile Drivers Relationship Specialty Start Date End Date Nyasia Walters MD [address] [place] [address] PCP - General Internal Medicine 09/01/22 Real Vera DDS, MD [address] [place] [address] [email or web address] router operator 09/01/22 Poncho Perkins MD, DDS [address] [place] [address] [email or web address] hand router operator 09/15/22 Additional Source Comments The information contained in this document represents components of the legal health record. It is not the complete legal health record.[facility]
--- OUTSIDE RECORDS SUMMARY | 2025-08-15 08:12 | XMS_ITS | Encounter Summary ---
Author Organization [employer] Address [address] [facility] 7t [place] [address] Care Team Providers Care Backhaul Driver Name Role Phone Nyasia Walters MD Primary Care Provider [phone] Encounter Details Date Type Department Care Team ([facility] st Contact Info) Description 12/13/2023 Orders Only [facility]S [address] [place], [place] [phone] Nyasia Walters MD [address] [place] [address] Social History Tobacco Use Types Packs/Day Years [...] documented as of this encounter Care Teams Backhaul Driver Relationship Specialty Start Date End Date Nyasia Walters MD [address] [place] [address] PCP - General Internal Medicine 08/16/18 documented as of this encounter
--- OUTSIDE RECORDS SUMMARY | 2025-08-15 08:12 | XMS_ITS | Encounter Summary ---
Author Organization [employer] Address [address] [facility] 7t [place] [address] Care Team Providers Care Synthetic Cloth Binding Cutter Name Role Phone Nyasia Walters MD Primary Care Provider [phone] Encounter Details Date Type Department Care Team (Late st Contact Info) Description 12/13/2023 Telephone [facility] [address] [place] [address] Nyasia Walters MD [address] [place] [address] Social History Tobacco Use Types Packs/Day Years [...] documented as of this encounter Care Teams Synthetic Cloth Binding Cutter Relationship Specialty Start Date End Date Nyasia Walters MD [address] [place] [address] PCP - General Internal Medicine 08/16/18 documented as of this encounter
--- OUTSIDE RECORDS SUMMARY | 2025-08-15 08:12 | XMS_ITS | Encounter Summary ---
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
--- OUTSIDE RECORDS SUMMARY | 2025-08-15 08:12 | XMS_ITS | Encounter Summary ---
Author Organization [facility] Address [address] [facility] [address] [place] [address] Phone Care Team Providers Care Superintendent Track Name Role Phone Nyasia Walters MD Primary Care Pr ovider Real Vera DDS, MD Unavailable Poncho Perkins MD, VIJAYA Unavailable [phone] Encounter Details Date Type Department Care Team (Late st Contact Info) Description 10/07/2022 Procedure Pass [facility] [place] [address] [facility], 6th [place] [address] Social History Tobacco Use Types Packs/Day Years [...] on filedocumented in this encounter Care Teams Superintendent Track Relationship Specialty Start Date End Date Nyasia Walters MD [address] [place] [address] PCP - General Internal Medicine 09/01/22 Real Vera DDS, MD [address] [place] [address], [address] [place] [address] [email or web address] 09/01/22 Poncho Perkins MD, DARRICKS [address] [place] [address] [email or web address] 09/15/22 documented as of this encounter Additional Source Comments The information contained in this document represents components of the legal health record. It is not the complete legal health record.[facility]
--- OUTSIDE RECORDS SUMMARY | 2025-08-15 08:12 | XMS_ITS | Encounter Summary ---
Author Organization [employer] Address [address] [facility] 7t [place] [address] Care Team Providers Care Health Care Technician Name Role Phone Nyasia Walters MD Primary Care Provider [phone] Encounter Details Date Type Department Care Team (Late st Contact Info) Description 01/10/2025 Orders Only [facility] [address] [place] [address] ProviderMara MD Social History Tobacco Use Types [...] documented as of this encounter Care Teams Health Care Technician Relationship Specialty Start Date End Date Nyasia Walters MD [address] [place] [address] PCP - General Internal Medicine 08/16/18 documented as of this encounter
--- OUTSIDE RECORDS SUMMARY | 2025-08-15 08:12 | XMS_ITS | Encounter Summary ---
Author Organization [facility] Address [address] [facility] [address] [place] [address] Phone Care Team Providers Care Optometry Teacher Name Role Phone Nyasia Walters MD Primary Care Pr ovider Real Vera DDS, MD Unavailable Poncho Perkins MD, VIJAYA Unavailable [phone] Encounter Details Date Type Department Care Team (Late st Contact Info) Description 09/15/2022 Procedure Pass [facility] - [place] [address] [facility], 6th [place] [address] Social History Tobacco Use Types Packs/Day Years [...] on filedocumented in this encounter Care Teams Optometry Teacher Relationship Specialty Start Date End Date Nyasia Walters MD [address] [place] [address] PCP - General Internal Medicine 09/01/22 Real Vera DDS, MD [address] [place] [address], [address] [place] [address] [email or web address] 09/01/22 Poncho Perkins MD, DARRICKS [address] [place] [address] [email or web address] 09/15/22 documented as of this encounter Additional Source Comments The information contained in this document represents components of the legal health record. It is not the complete legal health record.[facility]
--- OUTSIDE RECORDS SUMMARY | 2025-08-15 08:13 | XMS_ITS | Encounter Summary ---
Author Organization [employer] Address [address] [facility] 7 [place] [address] Care Team Providers Care Duplicating Machine Mechanic Name Role Phone Nyasia Walters MD Primary Care Provider [phone] Reason for Visit * Reason Onset Date Comments Call Back Request 08/13/2025 Encounter Details Date Type Department Care Team ([facility] Contact Info) Description 08/13/2025 Telephone [facility] CH[facility] MED & PEDS [address] [place] [address] Nyasia Walters MD [address] [place] [address] Call Back Request Social History Tobacco Use [...] encounter Miscellaneous Notes * Telephone Encounter - Rito Fuentes - 08/13/2025 8:52 AM EST Tc from pt inquiring how long he should have his compression socks on for. Contact pt at [phone] documented in this encounter Plan of Treatment Not on file documented as of this encounter Visit Diagnoses Not on filedocumented in this encounter Additional Health Concerns Assessment Noted Time PHQ-9 Depression Total Score: 5 11/07/19 25 2:49 PM EDT documented as of this encounter Care Teams Duplicating Machine Mechanic Relationship Specialty Start Date End Date Nyasia Walters MD [address] [place] [address] PCP - General Internal Medicine 08/16/18 documented as of this encounter
--- OUTSIDE RECORDS SUMMARY | 2025-08-15 08:13 | XMS_ITS | Encounter Summary ---
Author Organization [facility] Address [address] [facility] [address] [place] [address] Phone Care Team Providers Care Manager Of Software Name Role Phone Nyasia Walters MD Primary Care Pr ovider Real Vera DDS, MD Unavailable [phone] Poncho Perkins MD, DDS Unavailable [phone] Encounter Details Date Type Department Care Team (Late st Contact Info) Description 12/31/2023 Procedure Pass [facility] PERIOP DEPT [address] [place] [address] Social History Tobacco Use Types Packs/Day Years [...] filedocumented in this encounter Care Teams Manager Of Software Relationship Specialty Start Date End Date Nyasia Walters MD [address] [place] [address] PCP - General Internal Medicine 09/01/22 Real Vera DDS, MD [address] [place] [address] [address] [place] [address] [email or web address] manager assurance 09/01/22 Poncho Perkins MD, DDS [address] [place] [address] [email or web address] manager assurance 09/15/22 documented as of this encounter Additional Source Comments The information contained in this document represents components of the legal health record. It is not the complete legal health record.[facility]
--- OUTSIDE RECORDS SUMMARY | 2025-08-15 08:13 | XMS_ITS | Encounter Summary ---
Author Organization [employer] Address [address] [facility] 7t [place] [address] Care Team Providers Care Informatics Analyst Name Role Phone Nyasia Walters MD Primary Care Provider [phone] Reason for Visit * Reason Onset Date Comments status 08/21/2022 Encounter Details Date Type Department Care Team (Late st Contact Info) Description 08/21/2022 Telephone [facility] MEDICINE [address] [place] [address] Nyasia Walters MD [address] [place] [address] status Social History Tobacco Use Types Packs/Day [...] ( fluticasone ) Please contact pt at [phone] documented in this encounter Plan of Treatment Not on file documented as of this encounter Visit Diagnoses Diagnosis Other rhinitis documented in this encounter Care Teams Informatics Analyst Relationship Specialty Start Date End Date Nyasia Walters MD [address] [place] [address] PCP - General Internal Medicine 08/16/18 documented as of this encounter
--- OUTSIDE RECORDS SUMMARY | 2025-08-15 08:13 | XMS_ITS | Encounter Summary ---
Author Organization [facility] Address [address] [facility] [address] [place] [address] Phone Care Team Providers Care Cuff Setter Overlock Name Role Phone Nyasia Walters MD Primary Care Pr ovider Real Vera DDS, MD Unavailable Poncho Perkins MD, DDS Unavailable + [phone] Encounter Details Date Type Department Care Team (Late st Contact Info) Description 12/22/2023 Procedure Pass [facility] Main [place] [address] [place] [address] Social History Tobacco Use Types Packs/Day Years [...] on filedocumented in this encounter Care Teams Cuff Setter Overlock Relationship Specialty Start Date End Date Nyasia Walters MD [address] [place] [address] PCP - General Internal Medicine 09/01/22 Real Vera DDS, MD [address] [place] [address] 101 [place] [address] [email or web address] mass [email or web address] 09/01/22 Poncho Perkins MD, DDS [address] [place] [address] [email or web address] 09/15/22 documented as of this encounter Additional Source Comments The information contained in this document represents components of the legal health record. It is not the complete legal health record.[facility]
--- OUTSIDE RECORDS SUMMARY | 2025-08-15 08:13 | XMS_ITS | Encounter Summary ---
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
--- OUTSIDE RECORDS SUMMARY | 2025-08-15 08:13 | XMS_ITS | Encounter Summary ---
Author Organization [employer] Address [address] [facility] 7 [place] [address] Care Team Providers Care Candlemaking Laborer Name Role Phone Nyasia Walters MD Primary Care Provider [phone] Encounter Details Date Type Department Care Team (Late st Contact Info) Description 07/21/2022 Telephone [facility] MEDICINE [address] [place], [place] [phone] Nyasia Walters MD [address] [place], [place] [phone] Social History Tobacco Use Types Packs/Day Years [...] on filedocumented in this encounter Care Teams Candlemaking Laborer Relationship Specialty Start Date End Date Nyasia Walters MD [address] [place] [address] PCP - General Internal Medicine 08/16/18 documented as of this encounter
--- OUTSIDE RECORDS SUMMARY | 2025-08-15 08:13 | XMS_ITS | Encounter Summary ---
Author Organization [facility] Address [address] [employer] [facility] [address] [place] [address] Phone Care Team Providers Care Mailing Machine Helper Name Role Phone Nyasia Walters MD Primary Care Pr ovider Real Vera DDS, MD Unavailable Poncho Perkins MD, DDS Unavailable [phone] Encounter Details Date Type Department Care Team (Late st Contact Info) Description 01/18/2024 Procedure Pass [facility] PERIOP DEPT [address] [place] [address] Social History Tobacco Use Types Packs/Day Years [...] on filedocumented in this encounter Care Teams Mailing Machine Helper Relationship Specialty Start Date End Date Nyasia Walters MD [address] [place] [address] PCP - General Internal Medicine 09/01/22 Real Vera DDS, MD [address] [place] [address] [address] [place] [address] [email or web address] configurator 09/01/22 Poncho Perkins MD, DDS [address] [place] [address] [email or web address] configurator 09/15/22 documented as of this encounter Additional Source Comments The information contained in this document represents components of the legal health record. It is not the complete legal health record.[facility]
--- OUTSIDE RECORDS SUMMARY | 2025-08-15 08:13 | XMS_ITS | Encounter Summary ---
Author Organization [facility] Address [address] [facility] [address] [place] [address] Phone Care Team Providers Care Skiver Box Toe Name Role Phone Nyasia Walters MD Primary Care Pr ovider Real Vera DDS, MD Unavailable Poncho Perkins MD, DDS Unavailable [phone] Encounter Details Date Type Department Care Team (Late st Contact Info) Description 03/16/2025 Procedure Pass [facility] [place] [address] [place] [address] Social History Tobacco Use Types Packs/Day Years [...] on filedocumented in this encounter Care Teams Skiver Box Toe Relationship Specialty Start Date End Date Nyasia Walters MD [address] [place] [address] PCP - General Internal Medicine 09/01/22 Real Vera DDS, MD [address] [place] [address] [email or web address] client associate 09/01/22 Poncho Perkins MD, DDS [address] [place] [address] [email or web address] client associate 09/15/22 documented as of this encounter Additional Source Comments The information contained in this document represents components of the legal health record. It is not the complete legal health record.[facility]
--- OUTSIDE RECORDS SUMMARY | 2025-08-15 08:13 | XMS_ITS | Encounter Summary ---
Author Organization [facility] Address [address] [facility] [address] [place] [address] Phone Care Team Providers Care Performance Improvement Director Name Role Phone Nyasia Walters MD Primary Care Pr ovider Real Vera DDS, MD Unavailable Poncho Perkins MD, DDS Unavailable + [phone] Encounter Details Date Type Department Care Team (Late st Contact Info) Description 12/11/2022 Procedure Pass [facility] MA[facility] PERIOP DEPT [address] [place] [address] Social History Tobacco Use Types Packs/Day Years [...] on filedocumented in this encounter Care Teams Performance Improvement Director Relationship Specialty Start Date End Date [place]o Davidterrencewendy Rios MD [address] [place] [address] PCP - General Internal Medicine 09/01/22 Real Vera DDS, MD [address] [place] [address], [address] [place] [address] [email or web address] 09/01/22 Poncho Perkins MD, DDS [address] [place] [address] [email or web address] 09/15/22 documented as of this encounter Additional Source Comments The information contained in this document represents components of the legal health record. It is not the complete legal health record.[facility]
--- OUTSIDE RECORDS SUMMARY | 2025-08-15 08:13 | XMS_ITS | Encounter Summary ---
Author Organization [facility] Address [address] [facility] [address] [place] [address] Phone Care Team Providers Care Freight Weigher Name Role Phone Nyasia Walters MD Primary Care Pr ovider Real Vera DDS, MD Unavailable Poncho Perkins MD, DDS Unavailable + [phone] Encounter Details Date Type Department Care Team (Late st Contact Info) Description 12/22/2023 Procedure Pass [facility] Main [place] [address] [place] [address] Social History Tobacco Use Types Packs/Day Years [...] on filedocumented in this encounter Care Teams Freight Weigher Relationship Specialty Start Date End Date Nyasia Walters MD [address] [place] [address] PCP - General Internal Medicine 09/01/22 Real Vera DDS, MD [address] [place] [address] 101 [place] [address] [email or web address] [email or web address] inspector 09/01/22 Poncho Perkins MD, DDS [address] [place] [address] [email or web address] inspector 09/15/22 documented as of this encounter Additional Source Comments The information contained in this document represents components of the legal health record. It is not the complete legal health record.[facility]
== END 2025-08-15 08:10 | disposition home or self-care (01) ==
LOC: HO.US 08:09
PROVIDERS: PCP Internal Medicine; Visit Provider Internal Medicine
DX: R74.01 Elevation of levels of liver transaminase levels (principal)
CPT/HCPCS: 76700; 76981

== ENCOUNTER → 2025-08-15 08:11 | Outpatient (BNV) | payer MEDICAID, SELFPAY | PROVIDERS: PCP Internal Medicine; Visit Provider Radiology Diagnostic Radiology | DX: K82.8 Other specified diseases of gallbladder (principal); D73.89 Other diseases of spleen | CPT/HCPCS: 76700 ==